=== PATIENT | male | born 1970 | race Caucasian/White ===

== ENCOUNTER 2020-09-17 07:51 | Outpatient (REF) | payer OTHER, SELFPAY ==
[2020-09-17 10:46] LABS: Alanine Aminotransferase 21 U/L (0-40); Albumin Level 4.7 g/dL (3.5-5.0); Alkaline Phosphatase 44 U/L (39-117); Anion Gap 14 (12-20); Aspartate Amino Transferase 19 U/L (5-37); Bilirubin Direct 0.2 mg/dL (0.0-0.5); Bilirubin Total 0.6 mg/dL (0.0-1.0); Blood Urea Nitrogen 23 mg/dL (9-16); Carbon Dioxide 26 mmol/L (22-29); Chloride 104 mmol/L (96-108); Cholesterol 251 mg/dL; Estimated Glomerular Filt Rate > 60; HDL Cholesterol 83 mg/dL; LDL Cholesterol Calculated 160 mg/dl; Potassium 4.5 mmol/L (3.3-5.1); Sodium 139 mmol/L (135-145); Total Protein 7.2 g/dL (6.5-8.0); Triglycerides 44 mg/dL
== END 2020-09-17 07:52 | disposition home or self-care (01) ==
LOC: HO.10HDL 07:51
PROVIDERS: Visit Provider Family Medicine
DX: I10 Essential (primary) hypertension (principal); E78.00 Pure hypercholesterolemia, unspecified
CPT/HCPCS: 36415; 80051; 80061; 80076; 82565; 84520

== ENCOUNTER → 2021-04-03 09:01 | Outpatient (BNVA) | payer OTHER, SELFPAY | PROVIDERS: PCP Family Medicine; Visit Provider Surgery ==

== ENCOUNTER 2021-07-08 06:26 | Day surgery (SDC) | payer OTHER, SELFPAY ==
[2021-05-13 15:28] VITALS: BMI 26.0
--- NOTE | 2021-05-19 10:45 | P.CONAN_ITS ---
HPI - Anesthesia Eval Consult details Narrative: 50yo M for Colonoscopy, Poss Polypectomy PMFSH Active Problems Active Problems: All Active Problems (Updated 05/13/21 @ 15:28 by Chesley Kaufman RN) Colon cancer screening (Acute) Hypertension (Acute) Past Medical History Medical History (Updated 05/13/21 @ 15:28 by Chelsey Kaufman RN) Colon cancer screening COVID-19 vaccine series completed Hypertension Surgical History Surgical History (Updated 05/13/21 @ 15:28 by Chelsey Kaufman RN) History of surgery on arm History of total right hip arthroplasty Social History Social History Are you a primary patient care representative to a significant other at home: No Do you presently have visiting nurse or other home services: No Patient Tobacco Use Status: Never used Tobacco Use of substances other than those prescribed or required for medical reasons: No Have you been hit, kicked, punched, or otherwise hurt by someone within the past year? If so, by whom?: No Are you DNR?: No Advance Directives: No (states is his but no official HCP form) Advance Directives Information Provided: Yes (informational brochure mailed) Advance Directives on File: No Recently lost weight without trying: No Eating poorly because of decreased appetite: No Nutrition Risks: No Nutritional Risk Poor oral hygiene: No Meds Allergies Allergy/AdvReac Type Severity Reaction Status Date / Time No Known Allergies Allergy Verified 05/13/21 15:26 Home Medications Medication Instructions Recorded Confirmed Last Taken Type lisinopril 5 mg tablet 5 mg PO DAILY 04/03/21 05/13/21 Unknown History Exam Exam Date and Time: May 19, 2021 1045 Height,Weight and Vital Signs: Height 5 ft 11 in Weight 84.822 kg Assessment and Plan Assessment Anesthesia Assessment: Chart Reviewed
--- NOTE | 2021-07-07 09:21 | HO.ANESPROP2 ---
Documented by User: Peyton Nelson NP 07/07/21 09:21 HPI - Anesthesia Eval Consult details Narrative: 50yo M for Colonoscopy, Poss Polypectomy [facility] Active Problems Active Problems: All Active Problems (Updated 05/13/21 @ 15:28 by Chelsey Kaufman RN) Colon cancer screening (Acute) Hypertension (Acute) Past Medical History Medical History (Updated 05/13/21 @ 15:28 by Chelsey Kaufman RN) Colon cancer screening COVID-19 vaccine series completed Hypertension Surgical History Surgical History (Updated 05/13/21 @ 15:28 by Chelsey Kaufman RN) History of surgery on arm History of total right hip arthroplasty Social History Social History Are you a primary before and after school daycare worker to a significant other at home: No Do you presently have visiting nurse or other home services: No Patient Tobacco Use Status: Never used Tobacco Use of substances other than those prescribed or required for medical reasons: No Have you been hit, kicked, punched, or otherwise hurt by someone within the past year? If so, by whom?: No Are you DNR?: No Advance Directives: No Advance Directives Information Provided: Yes Advance Directives on File: No Recently lost weight without trying: No Eating poorly because of decreased appetite: No Nutrition Risks: No Nutritional Risk Poor oral hygiene: No Meds Allergies Allergy/AdvReac Type Severity Reaction Status Date / Time cefazolin Allergy Rash Verified 07/08/21 06:40 Home Medications Medication Instructions Recorded Confirmed Last Taken Type lisinopril 5 mg tablet 5 mg PO DAILY 04/03/21 05/13/21 Unknown History Exam Exam Date and Time: July 07, 2021 0921 Height,Weight and Vital Signs: Height 5 ft 11 in Weight 84.822 kg Assessment and Plan Assessment Anesthesia Assessment: Chart Reviewed Documented by User: Wilfrido Yen 07/08/21 07:20 [facility] Past Medical History Medical History (Updated 05/13/21 @ 15:28 by Chelsey Kaufman RN) Colon cancer screening COVID-19 vaccine series completed Hypertension Functional capacity: independent ambulation Family History Family history of problems with anesthesia: No Surgical History Surgical History (Updated 05/13/21 @ 15:28 by Chelsey Kaufman RN) History of surgery on arm History of total right hip arthroplasty History of Problems with Anesthesia: No Social History Social History Are you a primary before and after school daycare worker to a significant other at home: No Do you presently have visiting nurse or other home services: No Patient Tobacco Use Status: Never used Tobacco Use of substances other than those prescribed or required for medical reasons: No Have you been hit, kicked, punched, or otherwise hurt by someone within the past year? If so, by whom?: No Are you DNR?: No Advance Directives: No Advance Directives Information Provided: Yes Advance Directives on File: No Recently lost weight without trying: No Eating poorly because of decreased appetite: No Nutrition Risks: No Nutritional Risk Poor oral hygiene: No Meds Allergies Allergy/AdvReac Type Severity Reaction Status Date / Time cefazolin Allergy Rash Verified 07/08/21 06:40 Home Medications Medication Instructions Recorded Confirmed Last Taken Type lisinopril 5 mg tablet 5 mg PO DAILY 04/03/21 05/13/21 Unknown History Exam Airway Mallampati Class: III TM Dist: >3cm Neck ROM: Full Loose/Missing/Broken Teeth: Yes (Fillings ) Heart: rrr Lungs: bl breath sounds Assessment and Plan Final Anesthetic Review Family History of Problems with Anesthesia: No History of Problems with Anesthesia: No NPO: Yes ASA Class: II Final Preanesthetic Review: Meds/Allgs Chart Reviewed and Anes Risks/Benef Reviewed Patient Risk: Intermediate Procedure Risk: Intermediate Anesthetic Plan Anesthetic Plan: MAC: Disposition: Standard PACU
[2021-07-08 06:38] VITALS: BP 124/74; PULSE 62; RESP 16; TEMP 36.3; O2SAT 98; BMI 25.7
[2021-07-08] MEDS: Lactated Ringers 1,000 ML 100 ML IVCONT (07:25)
--- NOTE | 2021-07-08 07:28 | MHC.SHP ---
Pre-Procedural Eval Section A Date of Service: 07/08/21 Section B Chief Complaint: Screening Details of Present Illness: no previous colonoscopy, no GI complaints Relevant Family History (Specify if Yes): No Relevant Social History: None Present Medications: see Short Stay Collaborative assessment Medical History: Significant History (Hypertension) Allergies: Allergies Allergy/AdvReac Type Severity Reaction Status Date / Time cefazolin Allergy Rash Verified 07/08/21 06:40 Review of Systems Sugical H&P ROS: Negative: Constitution, Cardiovascular, Respiratory, Neurological, Psychiatric, Hem-Onc, Allergic/Immunologic, Gastrointestinal, Genitourinary, Musculoskeletal, Integumentary, Endocrine and Eyes/Ears/Nose/Throat Exam Surgical H&P Exam: Normal: HEENT, Normal: Heart, Normal: Lungs, Normal: Extremities, Normal: Abdomen, Normal: Skin and Normal: Neurological Plan Diagnosis/Plan: Unchanged I have reviewed the history and physical and performed a pertinent physical examination on my patient. No changes have occurred unless specified.
--- NOTE | 2021-07-08 08:03 | W.PM.OPN ---
Operative Note Operative Note Date of Service: 07/08/21 Narrative: Preop diagnosis: Colon Cancer screening Postop diagnosis: Normal colonoscopy findings Procedure: Colonoscopy for screening Surgeon: Ryan Nye MD The patient is a 50-year-old male referred to me for screening colonoscopy. He understood the technique of the procedure. He was aware of the risks, benefits, and alternatives He was brought to the operating room placed in left lateral decubitus position under monitored anesthesia care. A surgical time-out was done. A digital rectal exam was done and there were no palpable lesions or induration in the anal canal. I then gently inserted the Olympus scope through the anal orifice and this was advanced slowly with insufflation all the way to the cecum. The cecum was intubated. The cecum was identified via visualization of the ileocecal valve as well as the appendiceal orifice. The cecal mucosa was unremarkable. The scope was gradually withdrawn with careful examination of the entire colonic mucosa being done with scope withdrawal. The patient had good bowel prep so it was unlikely that any lesion may have been missed. The rectum was reached. There were no lesions seen. The anal canal and the anal shelf are unremarkable. The scope was then withdrawn completely with desufflation. The patient tolerated procedure well. There were no complication noted. He falls at average risk for colon cancer so his next colonoscopy may be in the next 10 years.
[2021-07-08 08:11] VITALS: BP 97/52; PULSE 76; RESP 16; TEMP 36.2; O2SAT 96
[2021-07-08 08:26] VITALS: BP 108/79; PULSE 69; RESP 16; TEMP 35.9; O2SAT 96
== END 2021-07-08 09:06 | disposition home or self-care (01) ==
PROVIDERS: PCP Family Medicine; Visit Provider Surgery
PROC: 0DJD8ZZ Inspection of Lower Intestinal Tract, Via Natural or Artificial Opening Endoscopic (ICD-10-PCS; CPT 45378; principal; 2021-07-08 07:30)
DX: Z12.11 Encounter for screening for malignant neoplasm of colon (principal); I10 Essential (primary) hypertension; Z79.899 Other long term (current) drug therapy; Z88.8 Allergy status to other drugs, medicaments and biological substances
CPT/HCPCS: 45378

== ENCOUNTER 2021-10-08 09:28 | Outpatient (REF) | payer OTHER, SELFPAY ==
[2021-10-08 13:51] LABS: Anion Gap 14 (12-20); Blood Urea Nitrogen 24 mg/dL (9-16); Carbon Dioxide 27 mmol/L (22-29); Chloride 101 mmol/L (96-108); Estimated Glomerular Filt Rate > 60; Potassium 4.8 mmol/L (3.3-5.1); Sodium 137 mmol/L (135-145)
== END 2021-10-08 09:29 | disposition home or self-care (01) ==
LOC: HO.10HDL 09:28
PROVIDERS: Visit Provider Family Medicine
DX: I10 Essential (primary) hypertension (principal)
CPT/HCPCS: 36415; 80051; 82565; 84520

== ENCOUNTER 2022-10-15 12:05 | Outpatient (REF) | payer OTHER, SELFPAY ==
--- NOTE | ~2022-10-15 | XR_ITS ---
EXAMINATION: XR SHOULDER, RIGHT CLINICAL INFORMATION: Right shoulder pain. COMPARISON: None available. TECHNIQUE: Three views of the right shoulder. FINDINGS: There is no evidence of acute fracture or dislocation of the right shoulder. There is some spurring about the glenohumeral joint without significant joint space narrowing. There is degenerative change of the acromioclavicular joint with narrowing of joint space and marginal spurring. There is no widening of the coracoclavicular space. No calcific tendinitis appreciated. XR/XR shoulder RT min 2V IMPRESSION: Mild degenerative change of the glenohumeral joint and right acromioclavicular joint.
== END 2022-10-15 12:06 | disposition home or self-care (01) ==
LOC: HO.HOSX 12:05
PROVIDERS: Visit Provider Orthopaedic Surgery
DX: M67.911 Unspecified disorder of synovium and tendon, right shoulder (principal)
CPT/HCPCS: 73030

== ENCOUNTER 2022-11-16 07:18 | Outpatient (REF) | payer OTHER, SELFPAY ==
--- NOTE | ~2022-11-16 | MR_ITS ---
EXAMINATION: MR SHOULDER WITHOUT CONTRAST, RIGHT CLINICAL INFORMATION: Pain right shoulder. COMPARISON: X-ray of the right shoulder October 2022 TECHNIQUE: MRI of the shoulder without contrast was performed on a high-field scanner. FINDINGS: ROTATOR CUFF: Supraspinatus: There is a full-thickness insertional tear involving the anterior supraspinatus tendon. The tear results in tendon retraction and a tendon gap measuring 10 mm transverse and 2 cm AP. There is some additional heterogeneity of the posterior aspect of the tendon compatible with tendinosis and perhaps small areas of partial tearing but no measurable defect or tendon retraction. The muscle is normal. Infraspinatus: There is some minimal intrasubstance increased T2 signal at and just distal to the musculotendinous junction compatible with a small area of interstitial intrasubstance partial tearing but no measurable defect or tendon retraction. The muscle is normal. Teres minor: Normal. Subscapularis: Small focus of increased T2 signal along the articular surface just deep to the articular surface of the uppermost fibers of the subscapularis tendon in the midsubstance portion compatible with a small focal area of partial tearing. There is no transverse defect or tendon retraction. The muscle is normal. BICEPS: Normal. CORACOACROMIAL ARCH: The undersurface of the acromion is curved with no subacromial spur There is moderate hypertrophic osteoarthritis of acromioclavicular joint with marginal osteophytes, subchondral cystic change and reactive edema. BURSA: Small amount of increased fluid in the subacromial subdeltoid bursa. LABRUM/CAPSULE: There is a small amount of fluid tracking along the base of the superior labrum most likely reflecting a sublabral recess rather than tear. Remaining portions of the labrum are unremarkable. GLENOHUMERAL JOINT/MARROW: Normal. MR/MR shoulder RT wo con IMPRESSION: 1. Moderate size full-thickness insertional tear involving the anterior supraspinatus tendon. Additional tendinosis and perhaps small areas of partial tearing of the posterior aspect of the tendon but no measurable defect or tendon retraction. 2. Minimal abnormality of the infraspinatus compatible with small areas of interstitial intrasubstance partial tearing but no measurable defect or tendon retraction. 3. Small partial tear of the upper most fibers of the subscapularis tendon. No measurable defect. 4. 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
== END 2022-11-16 07:19 | disposition home or self-care (01) ==
LOC: HO.MRI 07:18
PROVIDERS: PCP Family Medicine; Visit Provider Orthopaedic Surgery
DX: M67.911 Unspecified disorder of synovium and tendon, right shoulder (principal)
CPT/HCPCS: 73221

== ENCOUNTER → 2022-11-30 09:36 | Outpatient (BNVA) | payer OTHER, SELFPAY | PROVIDERS: PCP Family Medicine; Visit Provider Orthopaedic Surgery ==

== ENCOUNTER 2022-12-28 09:27 | Outpatient (AMB) | payer OTHER, SELFPAY ==
--- NOTE | 2022-12-28 09:28 | A.OFFVIS_ITS ---
Intake Vital Signs 12/28/22 09:32 Height 5 ft 11 in Weight 190 lb BMI 26.5 Intake Visit Reasons: Pre-Op RT RTC repair 01/06/23NE Intake Note: Peter a 52 year old male presents today for a preoperative RT RTC repair on 01/06/23 NE. Pain management agreement reviewed and signed. Allergies cefazolin Allergy (Verified 12/28/22 09:32) Rash HPI Pre-Op RT RTC repair 01/06/23NE HPI Details Mr Clay presents to the office today for preop visit. She is scheduled for right shoulder rotator cuff repair with Dr. Goins. He continues to have ongoing pain and difficulty with in the right shoulder, which is affecting his quality of life; therefore, he has elected to move forward with surgery. 11/30/[address] Goins: Peter is a 51 year old man who presents for an MRI review of his right shoulder pain. He has a Hx of right biceps tendon repair, DOS: 01/04/19, by me. He continues to complain of pain, weakness, and limited ROM of his right shoulder, worse with overhead activity or reaching behind the back. He says his pain has improved since his fall, and he has managed to slightly increase his ROM, but he still feels limited ? 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 [employer] Review of Systems Const All systems reviewed & are unremarkable except as noted in HPI and below Physical Exam Vital Signs: BMI result Body Mass Index 26.5 Const General: cooperative and no acute distress Orientation/consciousness: patient oriented x3 HEENT Head: Yes normal to inspection, Yes normocephalic and Yes atraumatic Eyes General: appearance normal, both eyes and all related structures Neck Neck: Yes normal visual inspection and Yes no lymphadenopathy Resp Effort & Inspection: normal respiratory effort and able to speak in complete sentences Cardio Rate: regular rate Peripheral pulses: Peripheral pulses 2+ throughout GI Inspection: Yes normal to inspection Palpation (GI): Soft to palpation Skin General skin exam: no rashes or lesions noted Neuro General: patient oriented x3 Extrem Other: Right Shoulder: 4/5 strength with empty can testing otherwise full passive ROM - liftoff Psych Appearance: grossly normal Mental Status: mental status grossly normal Affect: normal affect Attitude: cooperative Results Reviewed Results Reviewed: MR shoulder RT wo con 11/16/22 IMPRESSION: 1. Moderate size full-thickness insertional tear involving the anterior supraspinatus tendon. Additional tendinosis and perhaps small areas of partial tearing of the posterior aspect of the tendon but no measurable defect or tendon retraction. ? 2. Minimal abnormality of the infraspinatus compatible with small areas of interstitial intrasubstance partial tearing but no measurable defect or tendon retraction. ? 3. Small partial tear of the upper most fibers of the subscapularis tendon. No measurable defect. ? 4. 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 Assessment & Plan Assessment & Plan (1) Impingement syndrome of right shoulder: Code(s): M75.41 - Impingement syndrome of right shoulder (2) Unspecified disorder of synovium and tendon, right shoulder: Code(s): M67.911 - Unspecified disorder of synovium and tendon, right shoulder Plan I explained the procedure in detail along with the length of recovery and rehab course. I explained the risk, benefits and alternatives. Risk including, but not limited to infection, blood clots, bleeding, ongoing pain and stiffness. I ex plained the use of the sling post op ie: 6 weeks. Discussed the importance of PT post op and performing pendulum exercises immediately after surgery. I answered all their questions and with their understanding they have consented to move forward with Rotator cuff repair Right shoulder with Dr Goins. The patient was not given a sling at todays because we did not have his size, will obtain in OR on the day of surgery. Orders: Orders PT Evaluation and Treatment Today M67.911 - Unspecified disorder of synovium and tendon, right shoulder, M75.41 - Impingement syndrome of right shoulder Patient Instructions: Scribed for Ta-Lia Villalpando PA-C, by Karri Dickerson, medical director/head team physician, on 12/28/2022 at 9:30 AM SOPHIA. Sunday Dotson PA-C, have personally reviewed and agree with the information entered by the scribe. Coding Level of Care Code Est Pt Level 3 (39467) Diagnoses Impingement syndrome of right shoulder M75.41 Unspecified disorder of synovium and tendon, right shoulder M67.911
[2022-12-28 09:32] VITALS: BMI 26.5
== END 2022-12-28 10:01 | disposition home or self-care (01) ==
PROVIDERS: PCP Family Medicine; Visit Provider Physician Assistant
DX: M75.41 Impingement syndrome of right shoulder (principal); M67.911 Unspecified disorder of synovium and tendon, right shoulder
CPT/HCPCS: 99024

== ENCOUNTER → 2022-12-28 09:27 | Outpatient (BNVA) | payer OTHER, SELFPAY | PROVIDERS: PCP Family Medicine; Visit Provider Physician Assistant ==

== ENCOUNTER 2022-12-28 10:00 | Outpatient (REF) | payer OTHER, SELFPAY ==
[2022-12-28 10:42] LABS: Anion Gap 12 (12-20); Blood Urea Nitrogen 21 mg/dL (9-16); Carbon Dioxide 29 mmol/L (22-29); Chloride 104 mmol/L (96-108); Estimated Glomerular Filt Rate > 60; Potassium 4.4 mmol/L (3.3-5.1); Sodium 141 mmol/L (135-145)
== END 2022-12-28 10:01 | disposition home or self-care (01) ==
LOC: HO.10HDL 10:00
PROVIDERS: Visit Provider Family Medicine
DX: I10 Essential (primary) hypertension (principal)
CPT/HCPCS: 36415; 80051; 82565; 84520

== ENCOUNTER 2023-01-06 09:35 | Day surgery (SDC) | payer OTHER, SELFPAY ==
[2023-01-04 10:32] VITALS: BMI 26.5
[2023-01-06] VITALS (9 sets, daily range): BP systolic 108–140; BP diastolic 65–90; PULSE 57–71; RESP 13–18; TEMP 36.2–37.1; O2SAT 92–98; BMI 26.2
--- NOTE | 2023-01-06 10:43 | MHC.SHP ---
Pre-Procedural Eval Section A Date of Service: 01/06/23 The patient is an INPATIENT: No Changes since office visit: No Cold of Flu in the past 2 weeks, No New Medical Problems, No Changes in Medication and No Patient answered all questions The History & Physical has been completed within 30 days and I have reviewed it.: Yes Section B Chief Complaint: Strain of muscle(s) and tendon(s) of the rotator Allergies: Allergies Allergy/AdvReac Type Severity Reaction Status Date / Time cefazolin Allergy Rash Verified 12/28/22 09:32 Plan I have reviewed the history and physical and performed a pertinent physical examination on my patient. No changes have occurred unless specified. Time Spent With Patient Time: Total time managing care of this patient today ____ minutes.
[2023-01-06] MEDS: Lactated Ringers 1,000 ML 100 ML IVCONT (10:44)
--- NOTE | 2023-01-06 13:01 | P.BOP_ITS ---
Brief Operative Note Date of Service: 01/06/23 Pre-op diagnosis: Right rtc tear Post-op diagnosis: same Procedure: Right rtc repair and SAD with anterior interval debridement Implants: Martinez and nephew Helacoil x 5 Surgeon: Mikel Goins MD Anesthesia: GETA and regional Was an Agricultural Extension Educator used for this Procedure?: Yes Agricultural Extension Educator: Stacie Hillman Estimated blood loss (mL): 10 IV fluids (mL): 1,000 Pathology: none sent Condition: stable Disposition: PACU
--- NOTE | 2023-01-08 16:29 | W.PM.OPN ---
Operative Note Operative Note Date of Service: 01/06/23 Narrative: Date of Service: 01/06/23 Pre-op diagnosis: Right rtc tear Post-op diagnosis: same Procedure: Right rtc repair and SAD with anterior interval debridement Implants: Martinez and nephew Helacoil x 5 Surgeon: Mikel Goins MD Anesthesia: GETA and regional Was an Supervisor Graphite used for this Procedure?: Yes Supervisor Graphite: Stacie Hillman Estimated blood loss (mL): 10 IV fluids (mL): 1,000 Pathology: none sent Condition: stable Disposition: PACU Procedure in detail: Patient was brought to the operating room and placed the the beach chair position. All bony prominences were well padded and the limb was prepped and draped in standard sterile fashion. A time out was called to identify proper site, proper procedure and proper surgeon. IV antibiotics per weight were administered. I began by making a posterolateral stab incision with a 15 blade. A blunt trochar was placed into the glenohumeral joint and I insufflated the joint with saline and a 30 degree arthroscope was placed. I established an outside- in anterior portal just distal to the biceps tendon. I then began my inspection of the glenohumeral joint. There was intact biceps and labral anchor with normal appearing glenoid and humeral head articular cartilage. Ttere was a full thickness undersurface RTC tear. The subcapularis was intact with a small partial thickness tear adjacent to mild fraying of the cieps ( ~10%). I debrided the loose tissue of the subscapularis and the biceps. I then removed the trochar and entered the subacromial space. A direct lateral portal was then established and I performed a bursectomy. The cuff was then examined. There was a full thickness crescentic tear of the supraspinatus and a portion of the infra without retraction. The tear was mobile. I placed two medial row double loaded anchors and then brought the suture tape through the medial cuff. I added two looped sutures at the anterior and posterior most aspect of the tear. I then debrided the bare area down to bleeding bone and, using a cross bridge configuration, brought three limbs to each of two lateral 5.0 anchors and the looped sutures to a far lateral anchor. This re-approximated the cuff anatomy near anatomically. I then performed a 5 mm subacromial decompression. Once I was satisfied with the repair final images were captured and I removed all instrumentation. Portals were closed with nylon. Patient was placed in an abduction sling, extubated and brought to the recovery room in stable condition. There were no known complications.
== END 2023-01-06 15:05 | disposition home or self-care (01) ==
PROVIDERS: PCP Family Medicine; Visit Provider Orthopaedic Surgery
PROC: (CPT 29827; principal; 2023-01-06 13:00)
DX: S46.011A Strain of muscle(s) and tendon(s) of the rotator cuff of right shoulder, initial encounter (principal); M75.41 Impingement syndrome of right shoulder; M67.911 Unspecified disorder of synovium and tendon, right shoulder; W19.XXXA Unspecified fall, initial encounter; Y93.9 Activity, unspecified; Y92.89 Other specified places as the place of occurrence of the external cause; Y99.9 Unspecified external cause status; I10 Essential (primary) hypertension; Z98.890 Other specified postprocedural states; Z88.1 Allergy status to other antibiotic agents; Z96.641 Presence of right artificial hip joint
CPT/HCPCS: 29827; 29826; 29822; C1713; J0171; J1100; J2250; J2405; J2795; J3010

== ENCOUNTER → 2023-01-06 09:35 | Outpatient (BNV) | payer OTHER, SELFPAY | PROVIDERS: PCP Family Medicine; Visit Provider Orthopaedic Surgery | DX: S46.011A Strain of muscle(s) and tendon(s) of the rotator cuff of right shoulder, initial encounter (principal) | CPT/HCPCS: 29826; 29827 ==

== ENCOUNTER 2023-01-11 10:45 | Outpatient (AMB) | payer OTHER, SELFPAY ==
--- NOTE | 2023-01-11 10:51 | A.OFFVIS_ITS ---
Intake Intake Visit Reasons: Post-Op RT RTC repair 01/06/23NE Intake Note: Peter is a 52 year old right hand dominant male who presents today for his first post operative appointment s/p Right RTC Repair 01/06/23 NE. Patient reports that he is doing well, he has not pain. He explains that he is frustrated that he had trouble obtaining medications, states that there was poor communications in regards to getting it filled and resulted in him being behind. Allergies cefazolin Allergy (Mild, Verified 01/06/23 10:43) Rash HPI Post-Op RT RTC repair 01/06/23NE HPI Details Peter is a 52 year old man who presents ~5 days S/P right RTC repair with SAD & anterior interval debridement. He says he is doing well and has been performing exercises at home, and his daughter has been helping him perform dressing changes. He denies any fever, chills, or worsening pain. He says he was frustrated by poor communication post-operatively regarding pain medication. He says his pharmacy never received a prescription for Oxycodone for him to take following surgery, and it took some time to get a new prescription sent to a different pharmacy [facility] Medical History Colon cancer screening COVID-19 vaccine series completed Hypertension Surgical History (Updated 01/11/23 @ 11:03 by Efren Montes) H/O cardiac radiofrequency ablation History of surgery on arm History of total left hip replacement Social History Are you a primary care associate to a significant other at home: No Do you presently have visiting nurse or other home services: No Patient Tobacco Use Status: Never used Tobacco Current occupational status: employed 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 [employer] Review of Systems Const All systems reviewed & are unremarkable except as noted in HPI and below Physical Exam Const General: no acute distress and alert Orientation/consciousness: patient oriented x3 Neuro General: patient oriented x3 Extrem Other: Right Shoulder: Portals C/D/I Sensation intact to light touch Psych Appearance: grossly normal Affect: normal affect Attitude: cooperative Assessment & Plan Assessment & Plan (1) S/P rotator cuff repair: Code(s): Z98.890 - Other specified postprocedural states Plan: This is a 52 year old man S/P right RTC repair with SAD & anterior interval debridement, DOS: 01/06/23. He is doing well and has been performing dressing changes at home. He denies any symptoms of infection. I discussed his recovery timeline with him, as well as limitations. He is to avoid any lifting or overhead activities with his RUE, and will begin PT in the next few weeks. PT has been ordered and recommend he use ice prn. He will follow up in 4 weeks. He is flying for vacation in 2 weeks, I recommend he take aspirin prior to flying to try and minimize swelling. Plan Scribed for Mikel Goins MD by Efren Montes, medical staff director, on 01/11/23 at 11:05 AM, EST. Coding Level of Care Code Global (44884) Diagnoses S/P rotator cuff repair Z98.890
== END 2023-01-11 11:31 | disposition home or self-care (01) ==
PROVIDERS: PCP Family Medicine; Visit Provider Orthopaedic Surgery
DX: Z98.890 Other specified postprocedural states (principal)
CPT/HCPCS: 99024

== ENCOUNTER → 2023-01-11 10:45 | Outpatient (BNVA) | payer OTHER, SELFPAY | PROVIDERS: PCP Family Medicine; Visit Provider Orthopaedic Surgery ==

== ENCOUNTER 2023-02-11 10:33 | Outpatient (AMB) | payer OTHER, SELFPAY ==
--- NOTE | 2023-02-11 10:35 | MHC.OFFVIS ---
Intake Intake Visit Reasons: Postop-RT RTC repair 01/06/23NE Intake Note: Peter is a 52 year old right hand dominant male who presents today for a post operative appointment s/p Right RTC Repair 01/06/23 NE. Allergies cefazolin Allergy (Mild, Verified 01/06/23 10:43) Rash HPI Postop-RT RTC repair 01/06/23NE HPI Details Peter is a 52 year old man who presents ~1 month S/P right RTC repair with SAD & anterior interval debridement. He says he is doing well and has been attending PT and performing exercises at home. He continues to wear his sling. He has some pain with any movement of his shoulder but says this is tolerable. 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 [employer] Review of Systems Const All systems reviewed & are unremarkable except as noted in HPI and below Physical Exam Const General: no acute distress, alert and awake Orientation/consciousness: patient oriented x3 HEENT Head: Yes normocephalic and Yes atraumatic Eyes EOM: EOMs intact bilaterally Resp Effort & Inspection: normal respiratory effort and able to speak in complete sentences Cardio Jugular venous distension: no JVD Skin General skin exam: turgor normal Rashes: no rashes Neuro General: patient oriented x3 Extrem Other: Right Shoulder: Portals C/D/I Passive AB to 90 degrees Passive ER to 35 degrees Psych Appearance: grossly normal Affect: normal affect Attitude: cooperative Assessment & Plan Assessment & Plan (1) S/P rotator cuff repair: Code(s): Z98.890 - Other specified postprocedural states Plan: This is a 52 year old man S/P right RTC repair with SAD & anterior interval debridement, DOS: 01/06/23. He is doing well and has been attending PT. He is to avoid any lifting or overhead activities with his RUE, and will continue with PT. I order another course of PT, and recommend he stay off the water or his boat for the next few months while he recovers. He will discontinue his sling at this time. He will follow up in 6 weeks. Plan Scribed for Mikel Goins MD by Efren Montes, medical claims specialist, on 02/11/23 at 10:40 AM, EST. Orders: Orders PT Evaluation and Treatment 02/11/23 Z98.890 - Other specified postprocedural states Coding Level of Care Code Global (19987) Diagnoses S/P rotator cuff repair Z98.890
== END 2023-02-11 10:46 | disposition home or self-care (01) ==
PROVIDERS: PCP Family Medicine; Visit Provider Orthopaedic Surgery
DX: Z98.890 Other specified postprocedural states (principal)
CPT/HCPCS: 99024

== ENCOUNTER → 2023-02-11 10:33 | Outpatient (BNVA) | payer OTHER, SELFPAY | PROVIDERS: PCP Family Medicine; Visit Provider Orthopaedic Surgery ==

== ENCOUNTER 2023-04-01 08:56 | Outpatient (AMB) | payer OTHER, SELFPAY ==
--- NOTE | 2023-04-01 09:03 | MHC.OFFVIS ---
Intake Vital Signs 04/01/23 09:05 Height 5 ft 11 in Weight 190 lb BMI 26.5 Intake Visit Reasons: PO-RT RTC repair 01/06/23NE Intake Note: Peter is a 52 year old right hand dominant male who presents today for a post operative appointment s/p Right RTC Repair 01/06/23 NE. At his last visit he was instructed to avoid and lifting and overhead activities. Patient reports that he is doing well, he notices snapping in the shoulder with overhead movements. Allergies cefazolin Allergy (Mild, Verified 01/06/23 10:43) Rash HPI PO-RT RTC repair 01/06/23NE HPI Details Peter is a 52 year old man who returns ~11 weeks S/P right RTC repair. He says he is doing well and continues to work with PT. He has noticed a snapping sensation in his shoulder with overhead activities. 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 F/u 3 o/ No heavy lfiting. Coding Level of Care Code Global (02001) Diagnoses S/P rotator cuff repair Z98.890
[2023-04-01 09:05] VITALS: BMI 26.5
== END 2023-04-01 09:18 | disposition home or self-care (01) ==
PROVIDERS: PCP Family Medicine; Visit Provider Orthopaedic Surgery
DX: Z98.890 Other specified postprocedural states (principal)
CPT/HCPCS: 99024

== ENCOUNTER → 2023-04-01 08:56 | Outpatient (BNVA) | payer OTHER, SELFPAY | PROVIDERS: PCP Family Medicine; Visit Provider Orthopaedic Surgery ==

== ENCOUNTER 2023-04-06 10:00 | Outpatient (RCR) | payer OTHER, SELFPAY ==
--- NOTE | 2023-01-28 11:36 | MHC.PT.EP ---
[facility] [place] Office [place] Office [place] Office [address] [place] [address] [phone] F: [phone] F: [phone] F: [phone] F: [phone] Physical Therapy Plan of Care Date of Evaluation: Date of Surgery: 01/06/23 Diagnosis: R RTC repair with SAD & anterior interval debridement Assessment: 52 y/o R-hand dominant male s/p R RTC repair with SAD and anterior interval debridement on 01/06/23. He is compliant with sling 'most of the time' but does not use abduction pillow. At this time, he is unable to use his R arm d/t surgical precautions and therefore limited with functional activities and hobbies (water skiing, downhill skiing). Of note he had a R biceps/ labral repair 3 years ago and a L FLORINA (anterior approach 2015). Examination shows closed and dry incisions with limited mobility anterior incision, L shoulder ROM/ strength WNL, R shoulder P/AAROM limited (flexion 90, ER 25, abd 70), R shoulder strength not tested secondary to surgical restrictions. Recommend PT 2x/week for 8 weeks then 1x/week for an additional 4 weeks to address impairments, implement HEP, and optimize functional mobility. Will utilize Frequency and Duration: The patient will be seen 2x/week for 12 weeks Short Term Goals: 6 weeks Compliant with HEP Improve R shoulder ROM flexion to 150, ER to 45 Senior Care Goals: 12 weeks I with HEP and self management of sx Pt will be able to reach overhead into shelves Pt will be able to intiiate gym regime with awareness of gradual progress of weight and precautions from surgery Pt will demonstrate R shoulder AROM WFL Treatment Plan: Modalities to reduce pain, spasms and effusion. Manual therapy to restore motion and function. Therapeutic exercise to improve strength and flexibility. Neuromuscular re-education for posture and balance. Therapeutic activities to return to functional activities of daily living. Electronically signed by: Stephie Porter PT Please sign and return to therapist. Thank you for your referral.
--- NOTE | 2023-05-25 08:20 | MHC.PT.DC ---
[facility] [place] Office [place] Office [place] Office [address] [place] [address] [phone] F: [phone] F: [phone] F: [phone] F: [phone] Physical Therapy Discharge Report Diagnosis: R RTC repair with SAD & anterior interval debridement Date of Surgery: 01/06/23 Date of Evaluation: 01/28/23 Date of Discharge: 05/25/23 Treatments to Date: 15 Cancellations to Date: 0 No Shows to Date: 0 Discharge Status: Improved Function Independent with HEP Discharge Summary: Pt made good progress with ROM and strength with education throughout not to overdo it during the RTC Repair timeline. He did not f/u with further visits following vacation. Electronically signed by: Stephie Porter PT Please sign and return to therapist. Thank you for your referral.
== END 2023-05-25 08:20 | disposition home or self-care (01) ==
LOC: HO.PT 10:00
PROVIDERS: PCP Family Medicine; Visit Provider Physician Assistant
DX: M75.41 Impingement syndrome of right shoulder (principal); M67.911 Unspecified disorder of synovium and tendon, right shoulder
CPT/HCPCS: 97110; 97112; 97140; 97161

== ENCOUNTER 2023-06-14 12:36 | Outpatient (AMB) | payer OTHER, SELFPAY ==
--- NOTE | 2023-06-14 12:37 | MHC.OFFVIS ---
Intake Vital Signs 06/14/23 12:38 Height 5 ft 11 in Weight 190 lb BMI 26.5 Intake Visit Reasons: OV-RT RTC repair 01/06/23NE-Follow up Intake Note: Peter is a 52 Year old male who presents today for a new problem visit with complaints of Right knee pain after a work injury/ skiing accident on 06/13/2023. Allergies cefazolin Allergy (Mild, Verified 06/14/23 12:44) Rash HPI OV-RT RTC repair 01/06/23NE-Follow up HPI Details Peter is a 52 year old man who presents with complaints of a right knee injury, DOI: 06/13/23. He twisted it skiing and was unable to continue skiing. 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 [employer] Review of Systems Const All systems reviewed & are unremarkable except as noted in HPI and below Physical Exam Vital Signs: BMI result Body Mass Index 26.5 Const General: no acute distress, alert and awake Orientation/consciousness: patient oriented x3 HEENT Head: Yes normocephalic and Yes atraumatic Eyes EOM: EOMs intact bilaterally Resp Effort & Inspection: normal respiratory effort and able to speak in complete sentences Cardio Jugular venous distension: no JVD Skin General skin exam: turgor normal Rashes: no rashes Neuro General: patient oriented x3 Extrem Other: 2+ nick 1+ knee effusion no ttp Psych Appearance: grossly normal Affect: normal affect Attitude: cooperative Results Reviewed Results Reviewed: nl right knee radiographs Assessment & Plan Assessment & Plan (1) Internal derangement of right knee: Code(s): M23.91 - Unspecified internal derangement of right knee Plan: ACL laxity + effusion after skiing accident with nl radiographs. MRI ordered Plan Scribed for Mikel Goins MD by Efren Montes, medical staff services coordinator, on 06/14/23 at 12:55 PM, EST. Orders: Orders MR knee RT wo con Today M23.91 - Unspecified internal derangement of right knee XR knee standing BI Today M25.569 - Pain in unspecified knee XR knee RT 2V Today M25.569 - Pain in unspecified knee Coding Level of Care Code Est Pt Level 3 (35685) Diagnoses Internal derangement of right knee M23.91
[2023-06-14 12:38] VITALS: BMI 26.5
== END 2023-06-14 13:16 | disposition home or self-care (01) ==
PROVIDERS: PCP Family Medicine; Visit Provider Orthopaedic Surgery
DX: M23.91 Unspecified internal derangement of right knee (principal); Z04.2 Encounter for examination and observation following work accident
CPT/HCPCS: 99213

== ENCOUNTER 2023-06-14 12:36 | Outpatient (REF) | payer OTHER, SELFPAY | END 2023-06-14 12:37 | disposition home or self-care (01) | LOC: HO.HOSX 12:36 | PROVIDERS: PCP Family Medicine; Visit Provider Orthopaedic Surgery | DX: M23.91 Unspecified internal derangement of right knee (principal) | CPT/HCPCS: 99212 ==

== ENCOUNTER 2023-06-16 12:57 | Outpatient (AMB) | payer OTHER, SELFPAY ==
--- NOTE | 2023-06-18 13:50 | A.OFFVIS_ITS ---
Intake Intake Visit Reasons: ACL Brace Fitting Intake Note: Peter a 52 year old male presents today for a right knee ACL brace fitting. 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 [employer] Assessment & Plan Assessment & Plan (1) Complete tear of anterior cruciate ligament of right knee: Code(s): S83.511A - Sprain of anterior cruciate ligament of right knee, initial encounter Qualifiers: Encounter type: subsequent encounter Qualified Code(s): S83.511D - Sprain of anterior cruciate ligament of right knee, subsequent encounter Plan patient was fit for an off the shelf acl brace in the office today Coding Level of Care Code Global (52705) Diagnoses Complete tear of anterior cruciate ligament of right knee, subsequent encounter S83.511D Encounter type: subsequent encounter
== END 2023-06-16 13:31 | disposition home or self-care (01) ==
PROVIDERS: PCP Family Medicine; Visit Provider Physician Assistant
DX: S83.511D Sprain of anterior cruciate ligament of right knee, subsequent encounter (principal)
CPT/HCPCS: 99212

== ENCOUNTER → 2023-06-16 12:57 | Outpatient (BNVA) | payer OTHER, SELFPAY | PROVIDERS: PCP Family Medicine; Visit Provider Physician Assistant | DX: S83.511D Sprain of anterior cruciate ligament of right knee, subsequent encounter (principal) | CPT/HCPCS: 99212 ==

== ENCOUNTER 2023-06-16 20:06 | Outpatient (REF) | payer OTHER, SELFPAY ==
--- NOTE | ~2023-06-16 | MR_ITS ---
EXAMINATION: MR KNEE WITHOUT CONTRAST, RIGHT CLINICAL INFORMATION: Right knee pain. COMPARISON: Radiographs 06/13/2023 TECHNIQUE: MRI of the knee without contrast was performed using routine sequences on a high-field scanner. FINDINGS: MENISCI: Medial Meniscus: Intact Lateral Meniscus: Intact. Tearing of the inferior popliteomeniscal fascicle. LIGAMENTS: Cruciate: Complete tear of the proximal ACL. The posterior cruciate ligament is intact. Collateral: The fibular collateral ligament is attenuated and irregular with surrounding edema likely representing a high-grade partial tear. The medial collateral ligament, biceps femoris and iliotibial band appear intact. There is a strain of the popliteus muscle. Prominent subcutaneous edema superficial to the iliotibial band. EXTENSOR MECHANISM: Intact ARTICULAR CARTILAGE/BONE: Patellofemoral Compartment: Normal Medial Compartment: Minimal articular cartilage irregularity along the lateral aspect of the weight-bearing femoral condyle. Lateral Compartment: Mild impaction fracture at the posterior aspect of the tibia. JOINT FLUID AND BURSAE: Small joint effusion and trace Ventura's cyst which may be leaking or recently ruptured, with fluid extending distally superficial to the medial gastrocnemius muscle. MR/MR knee RT wo con IMPRESSION: 1. Complete tear of the proximal ACL with a mild impaction fracture at the posterior aspect of the lateral tibia. Small joint effusion and trace Ventura's cyst. 2. High-grade partial tear of the fibular collateral ligament. Popliteus muscle strain. 3. No meniscal tear.
== END 2023-06-16 20:07 | disposition home or self-care (01) ==
LOC: HO.MRI 20:06
PROVIDERS: PCP Family Medicine; Visit Provider Orthopaedic Surgery
DX: M23.91 Unspecified internal derangement of right knee (principal)
CPT/HCPCS: 73721

== ENCOUNTER 2023-06-21 10:25 | Outpatient (AMB) | payer OTHER, SELFPAY ==
--- NOTE | 2023-06-21 14:15 | MHC.OFFVIS ---
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 He injured his right knee and is scheduled for a MRI follow-up today. He describes feeling okay with ongoing effusion. 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 Complete tear of the proximal ACL with a mild impaction fracture at the posterior aspect of the lateral tibia. Small joint effusion and trace Ventura's cyst. 2. High-grade partial tear of the fibular collateral ligament. Popliteus muscle strain. 3. No meniscal tear. Assessment & Plan Assessment & Plan (1) Complete tear of anterior cruciate ligament of right knee: Code(s): S83.511A - Sprain of anterior cruciate ligament of right knee, initial encounter Plan: This is a 52-year-old gentleman with a complete tear of his right ACL. I discussed with him my recommendation for surgery. He is active and healthy and wants to ski. I discussed with him the surgery and the details as well as the risks, benefits and alternatives. He expressed understanding and he will tentatively be scheduled for right ACL reconstruction with allograft and I will see him back in my office prior to surgery for further discussion and person. Telehealth Telehealth Location of provider rendering services: practice address Location of patient: address on file Patient Identification confirmed using: Name, : Yes Telehealth method: video Patient verbally consented to treatment: Yes Patient verbally consented to billing insurance company: Yes Patient informed of any privacy concerns related to visit: Yes Minutes spent on Phone/Video with Pt.: 15 Coding Level of Care Code Tele Est Pt Level 4 (92846) Diagnoses Complete tear of anterior cruciate ligament of right knee S83.511A
== END 2023-06-21 10:52 | disposition home or self-care (01) ==
LOC: HO.HOS 10:25
PROVIDERS: PCP Family Medicine; Visit Provider Orthopaedic Surgery
DX: S83.511A Sprain of anterior cruciate ligament of right knee, initial encounter (principal)
CPT/HCPCS: 99214

== ENCOUNTER → 2023-06-21 10:25 | Outpatient (BNVA) | payer OTHER, SELFPAY | PROVIDERS: PCP Family Medicine; Visit Provider Orthopaedic Surgery ==

== ENCOUNTER 2023-08-05 09:22 | Outpatient (AMB) | payer OTHER, SELFPAY ==
--- NOTE | 2023-08-05 09:24 | MHC.OFFVIS ---
Intake Intake Visit Reasons: Pre Op RT ACL reconstruction 08/11/23 NE Intake Note: Peter is a 52 year old male who presents today for a pre operative appointment, Right Knee ACL Repair 08/11/23.Right knee pain after a work injury/ skiing accident on 06/13/2023. Allergies cefazolin Allergy (Mild, Verified 08/05/23 09:29) Rash HPI Pre Op RT ACL reconstruction 08/11/23 NE HPI Details Peter is a 52 year old man who presents for a pre-op appointment for a right ACL reconstruction, with allograft, DOS: 08/11/23. He denies any changes in his symptoms or medial history. He has been doing well and is working on strengthening his right leg. He has no pain. 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 He is extremely active. 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 Resp Other: No audible wheezing Effort & Inspection: normal respiratory effort and able to speak in complete sentences Cardio Other: Radial pulse palpable with no rythmic abnormalities Jugular venous distension: no JVD Back/Spine/Pelvis Cervical Spine: normal cervical lordosis Skin General skin exam: turgor normal Rashes: no rashes Neuro General: patient oriented x3 Extrem Other: skin c/d/i No effusion no pain 2+nick's Psych Appearance: grossly normal Mental Status: mental status grossly normal Speech and movement: Normal speech and movement present Affect: normal affect Attitude: cooperative Results Reviewed Results Reviewed: I personally reviewed the MR images. 1. Complete tear of the proximal ACL with a mild impaction fracture at the posterior aspect of the lateral tibia. Small joint effusion and trace Ventura's cyst. 2. High-grade partial tear of the fibular collateral ligament. Popliteus muscle strain. 3. No meniscal tear. Assessment & Plan Assessment & Plan (1) Complete tear of anterior cruciate ligament of right knee: Code(s): S83.511A - Sprain of anterior cruciate ligament of right knee, initial encounter Qualifiers: Encounter type: subsequent encounter Qualified Code(s): S83.511D - Sprain of anterior cruciate ligament of right knee, subsequent encounter Plan: Right ACL tear. He is consented for an ACL reconstruction. I discussed graft choices and we elected to do a quadriceps autograft with allograft as a secondary possibility. I will also inject PRP intra-operatively. I discussed the risks benefits and alternatives including but not limited to the risk of pain, infection, stiffness, graft rupture, need for further surgery as well as potential medical complications such as blood clots, pulmonary embolism and cardiac complications. He expressed understanding. Plan Prepared for Mikel Goins MD by Efren Montes, medical language specialist, on 08/05/23 at 9:27 AM, EST. Medications: New oxycodone Partial Fill upon patient request. 5 mg PO Q4H PRN 20 caps 0RF pain 5 days S83.511A - Sprain of anterior cruciate ligament of right knee, initial encounter Coding Level of Care Code Global (83919) Diagnoses Complete tear of anterior cruciate ligament of right knee, subsequent encounter S83.511D Encounter type: subsequent encounter
== END 2023-08-05 11:38 | disposition home or self-care (01) ==
PROVIDERS: PCP Family Medicine; Visit Provider Orthopaedic Surgery
DX: S83.511A Sprain of anterior cruciate ligament of right knee, initial encounter (principal)
CPT/HCPCS: 99024

== ENCOUNTER → 2023-08-05 09:22 | Outpatient (BNVA) | payer OTHER, SELFPAY | PROVIDERS: PCP Family Medicine; Visit Provider Orthopaedic Surgery | DX: S83.511D Sprain of anterior cruciate ligament of right knee, subsequent encounter (principal) | CPT/HCPCS: 99212 ==

== ENCOUNTER 2023-08-11 11:19 | Day surgery (SDC) | payer OTHER, SELFPAY ==
--- NOTE | 2023-08-10 09:13 | HO.ANESPROP2 ---
Documented by User: Peyton Nelson NP 08/10/23 09:15 HPI - Anesthesia Eval Consult details Narrative: 52yo M for Right ACL Reconstruction with Autograft verses Allograft s/p rotator cuff repair 01/2023 with Nerve block and GA-ETT 7.5 PMFSH Active Problems Active Problems: All Active Problems (Updated 06/21/23 @ 21:10 by Sunday Villalpando PA-C) Complete tear of anterior cruciate ligament of right knee (Acute) Internal derangement of right knee (Acute) S/P rotator cuff repair (Acute) Impingement syndrome of right shoulder (Acute) Unspecified disorder of synovium and tendon, right shoulder (Acute) Colon cancer screening (Acute) Hypertension (Acute) Past Medical History Medical History COVID-19 vaccine series completed Colon cancer screening Hypertension Family History Family history of problems with anesthesia: No Surgical History Surgical History H/O cardiac radiofrequency ablation History of total left hip replacement History of surgery on arm History of Problems with Anesthesia: No Social History Social History Are you a primary director of health care marketing to a significant other at home: No Do you presently have visiting nurse or other home services: No Patient Tobacco Use Status: Never used Tobacco Current occupational status: employed 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[employer] Allergies Allergy/AdvReac Type Severity Reaction Status Date / Time cefazolin Allergy Mild Rash Verified 08/05/23 09:29 Home Medications Medication Instructions Recorded Confirmed Last Taken Type lisinopril 5 mg tablet 5 mg PO DAILY 04/03/21 01/06/23 01/05/23 History Assessment and Plan Assessment Anesthesia Assessment: Chart Reviewed Final Anesthetic Review Family History of Problems with Anesthesia: No History of Problems with Anesthesia: No Documented by User: Tamra Moreno MD 08/11/23 11:11 [facility] Past Medical History Medical History COVID-19 vaccine series completed Colon cancer screening Hypertension Surgical History Surgical History H/O cardiac radiofrequency ablation History of total left hip replacement History of surgery on arm Social History Social History Are you a primary director of health care marketing to a significant other at home: No Do you presently have visiting nurse or other home services: No Patient Tobacco Use Status: Never used Tobacco Current occupational status: employed 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[employer] 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 Allergy/AdvReac Type Severity Reaction Status Date / Time cefazolin Allergy Mild Rash Verified 08/05/23 09:29 Home Medications Medication Instructions Recorded Confirmed Last Taken Type lisinopril 5 mg tablet 5 mg PO DAILY 04/03/21 01/06/23 01/05/23 History Exam Airway Mallampati Class: II TM Dist: >3cm Neck ROM: Full Heart: rrr Lungs: cta Assessment and Plan Assessment Anesthesia Assessment: Anesthesia Plan Discussed Final Anesthetic Review NPO: Yes ASA Class: III Final Preanesthetic Review: No Changes in Pt Med Stat, Meds/Allgs Chart Reviewed, Consent Obtained/Reviewed and Anes Risks/Benef Reviewed Patient Risk: Intermediate Procedure Risk: Intermediate Anesthetic Plan Anesthetic Plan: GA and Regional Block Disposition: Standard PACU
[2023-08-11] VITALS (7 sets, daily range): BP systolic 125–139; BP diastolic 73–85; PULSE 65–92; RESP 16–18; TEMP 36.1–36.7; O2SAT 90–99; BMI 27.1
[2023-08-11] MEDS: Lactated Ringers 1,000 ML 100 ML IVCONT (11:49)
--- NOTE | 2023-08-11 13:21 | MHC.SHP ---
Pre-Procedural Eval Section A - 24 Hr Update-Section A only Date of Service: 08/11/23 The patient is an INPATIENT: No Changes since office visit: No Cold of Flu in the past 2 weeks, No New Medical Problems, No Changes in Medication and No Patient answered all questions The patient has been examined within 24 hours of the surgical procedure. The History & Physical has been completed within 30 days and I have reviewed it.: Yes Section B - Complete if H&P > 30 days Chief Complaint: Sprain of anterior cruciate ligament of right knee Allergies: Allergies Allergy/AdvReac Type Severity Reaction Status Date / Time cefazolin Allergy Mild Rash Verified 08/05/23 09:29 Plan I have reviewed the history and physical and performed a pertinent physical examination on my patient. No changes have occurred unless specified. Time Spent With Patient Time: Total time managing care of this patient today ____ minutes.
--- NOTE | 2023-08-11 17:22 | P.BOP_ITS ---
Brief Operative Note Date of Service: 08/11/23 Pre-op diagnosis: Right knee ACL tear Post-op diagnosis: same Procedure: Right ACL reconstruction wtih quad allograft and PRP Medial meniscectomy Implants: Martinez and Nephew ACL button/ 12x 25 mm tibial IF screw and 4.5 Footprint nad large Regeneten bioinductive graft Surgeon: Mikel Goins MD Anesthesia: GETA and local Was an Corrosion Technician used for this Procedure?: Yes Corrosion Technician: Stacie Hillman Estimated blood loss (mL): 25 Tourniquet time (min): 95 IV fluids (mL): 1,000 Pathology: none sent Condition: stable Disposition: PACU
--- NOTE | 2023-08-13 17:56 | W.PM.OPN ---
Operative Note Operative Note Date of Service: 08/11/23 Narrative: Date of Service: 08/11/23 Pre-op diagnosis: Right knee ACL tear Post-op diagnosis: same Procedure: Right ACL reconstruction withh quad allograft and PRP Medial meniscectomy Implants: Martinez and Nephew ACL button/ 12x 25 mm tibial IF screw and 4.5 Footprint and large Regeneten bioinductive graft Surgeon: Mikel Goins MD Anesthesia: GETA and local Was an Satellite Dish Repairer used for this Procedure?: Yes Satellite Dish Repairer: Stacie Hillman Estimated blood loss (mL): 25 Tourniquet time (min): 95 IV fluids (mL): 1,000 Pathology: none sent Condition: stable Disposition: PACU Procedure in detail: Patient was brought to the operating room placed supine on the arthroscopic table and prepped and draped in standard sterile fashion. A time-out was called to identify proper site proper procedure proper surgeon and IV antibiotics per weight were administered. Under anesthesia he had a + pivot shift. I began by exsanguinating the limb and insufflating tourniquet to 300 mm Hg. Then made a standard anterolateral stab incision. The knee was insufflated with water and 30 degree arthroscope was placed. There was grade 1 fibrillations of the patella but overall suprapatellar pouch and the gutters were clean. I descended into the medial compartment where I made my far medial portal under direct visualization. There was tear of the posterior horn with a stable root and G1/2 changes of the MFC. I used a biter and shaver to remove the undersurface flap. I then examined the notch where there was a + empty wall sign and an intact PCL. I examined the lateral compartment which was normal. I then remove the arthroscopy equipment and made 6 cm incision from the proximal pole of the patella up the midline of the thigh. Dissection down to the quad tendon and then I measured and marked a 10 mm x 2 cm bone from the proximal patella. A small oscillating saw was used to make an oblique cut with a pyrimadal shape of the bone inferiorly. These cuts were completed with a digital osteotome and the articular surface was not violated. The tendon was then cut 10 mm x 95 mm in length under direct visualization. I was very satisfied with the graft. The button wand graft sutures were then prepared on the back table. The wound was then closed with fiberwire and a large bioinductive Regeneten patch was placed over the distal tendon bone junction and sutured in place with 0 Vicryl. I then returned to the arthroscopic portion and I debrided the ACL stump and acl footprint and performed a limited notchplasty. I then, through a far AM portal and a 7mm behind the back guide, drilled a k-wire through the LFC with the knee in hyper-flexion. I measured the tunnel as a 34 and then after sizing the allograft on the back table drilled a 28 mm tunnel with a 10.5 mm reamer. The final 6 mm was drilled with a 4.5 reamer. I then pulled a suture through the femoral tunnel and turned my attention to the tibia. I did examine the femoral tunnel and was satisfied with the posterior wall and its location low and medial at the anatomic footprint. I placed my tibial drill guide in 55 deg and, through an anteromedial inc just lateral to the tibial tubercle placed a k-wire into the notch exiting just medial to the anterior horn insertion of the lateral meniscus. I then over-reamed with a 10.5 reamer. I cleaned the tunnels up with a shaver. On the back table the autograft fit through an 10.5 aperture and attached the femoral button to the looped end. I then passed the graft through the tibial tunnel and femoral tunnel and flipped the button. I cycled the knee and then placed a tibial interference screw with the knee in hyper-extension while holding the graft taught. In order to add additional security and strength I placed a Footprint anchor in the tibial side, dinking the tibial suture into it. Once I was satisfied that the interference screw and the anchor was buried I examined the ACL and the medial meniscus. The ACL was not impinging and there was a negative pivot shift. I then injected 3 ml of PRP in the femoral graft tunnel/autograft junction and then the remaining 3 in the tibial graft/tibial tunnel junction. I then removed all instrumentation and closed the incisions with nylon. Patient was then placed in sterile dressings and a hinged knee brace. David was then extubated brought recovery room stable condition. There were no known complications.
== END 2023-08-11 16:30 | disposition home or self-care (01) ==
LOC: HO.SSS 11:20
PROVIDERS: PCP Family Medicine; Visit Provider Orthopaedic Surgery
PROC: (CPT 27428; principal; 2023-08-11 13:30)
DX: S83.511A Sprain of anterior cruciate ligament of right knee, initial encounter (principal); M71.21 Synovial cyst of popliteal space [Baker], right knee; M25.461 Effusion, right knee; X58.XXXA Exposure to other specified factors, initial encounter; Y93.23 Activity, snow (alpine) (downhill) skiing, snowboarding, sledding, tobogganing and snow tubing; Y92.838 Other recreation area as the place of occurrence of the external cause; Y99.0 Civilian activity done for income or pay; I10 Essential (primary) hypertension; Z96.642 Presence of left artificial hip joint; Z98.890 Other specified postprocedural states; Z79.899 Other long term (current) drug therapy
CPT/HCPCS: 29888; 0232T; C1713; C1769; J0131; J0171; J0665; J0690; J0736; J1100; J1885; J2250; J2405; J2704; J2795; J3010

== ENCOUNTER → 2023-08-11 11:19 | Outpatient (BNV) | payer OTHER, SELFPAY | PROVIDERS: PCP Family Medicine; Visit Provider Orthopaedic Surgery | DX: S83.511A Sprain of anterior cruciate ligament of right knee, initial encounter (principal); Z04.2 Encounter for examination and observation following work accident | CPT/HCPCS: 0232T; 29888 ==

== ENCOUNTER 2023-08-19 13:39 | Outpatient (AMB) | payer OTHER, SELFPAY ==
--- NOTE | 2023-08-19 13:40 | A.OFFVIS_ITS ---
Intake Intake Visit Reasons: PO RT ACL reconstruction 08/11/23 NE Intake Note: Peter is a 52 year old male who presents today for a follow up od he right knee s/p ACL Reconstruction 08/11/23. He reports that he is doing well and has no concerns. He has been wearing his brace an utilizing cryotherapy device. Allergies cefazolin Allergy (Mild, Verified 08/05/23 09:29) Rash HPI PO RT ACL reconstruction 08/11/23 NE HPI Details Peter is a 52 year old male who presents today for a follow up od he right knee s/p ACL Reconstruction 08/11/23. He reports that he is doing well and has no concerns. He has been wearing his brace an utilizing cryotherapy device. 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
== END 2023-08-19 14:24 | disposition home or self-care (01) ==
PROVIDERS: PCP Family Medicine; Visit Provider Physician Assistant
DX: Z98.890 Other specified postprocedural states (principal); Z87.39 Personal history of other diseases of the musculoskeletal system and connective tissue
CPT/HCPCS: 99024

== ENCOUNTER → 2023-08-19 13:39 | Outpatient (BNVA) | payer OTHER, SELFPAY | PROVIDERS: PCP Family Medicine; Visit Provider Physician Assistant | DX: Z47.89 Encounter for other orthopedic aftercare (principal) | CPT/HCPCS: 99212 ==

== ENCOUNTER 2023-08-26 13:33 | Outpatient (AMB) | payer OTHER, SELFPAY ==
--- NOTE | 2023-08-26 14:12 | A.OFFVIS_ITS ---
Intake Intake Visit Reasons: PO RT ACL reconstruction 08/11/23 NE Intake Note: Peter is a 52 year old male who presents today for a follow up od he right knee s/p ACL Reconstruction 08/11/23. He reports that he is doing well and has no concerns. He has been wearing his brace an utilizing cryotherapy device. At his last visit the brace was adjusted as it was irritating the incision site, sutures removed and steri strips applied. Allergies cefazolin Allergy (Mild, Verified 08/05/23 09:29) Rash HPI PO RT ACL reconstruction 08/11/23 NE HPI Details Peter is a 52 year old male who presents today for a follow up od he right knee s/p ACL Reconstruction 08/11/23. He reports that he is doing well and has no concerns. He has been wearing his brace an utilizing cryotherapy device. At his last visit the brace was adjusted as it was irritating the incision site, sutures removed and steri strips applied. 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 [employer] Physical Exam Extrem Other: inc c/d/i moderate effusion no pain Assessment & Plan Assessment & Plan (1) S/P arthroscopic reconstruction of ACL of right knee using quadriceps tendon autograft: Code(s): Z98.890 - Other specified postprocedural states; Z87.39 - Personal history of other diseases of the musculoskeletal system and connective tissue Plan: Sutures removed follow up in 2 weeks cont PT and effusion management Coding Level of Care Code Global (50261) Diagnoses S/P arthroscopic reconstruction of ACL of right knee using quadriceps tendon autograft Z98.890; Z87.39
== END 2023-08-26 14:56 | disposition home or self-care (01) ==
PROVIDERS: PCP Family Medicine; Visit Provider Orthopaedic Surgery
DX: S83.511A Sprain of anterior cruciate ligament of right knee, initial encounter (principal); Z87.39 Personal history of other diseases of the musculoskeletal system and connective tissue
CPT/HCPCS: 99213

== ENCOUNTER → 2023-08-26 13:33 | Outpatient (BNVA) | payer OTHER, SELFPAY | PROVIDERS: PCP Family Medicine; Visit Provider Orthopaedic Surgery | DX: Z47.89 Encounter for other orthopedic aftercare (principal); Z48.02 Encounter for removal of sutures | CPT/HCPCS: 99212 ==

== ENCOUNTER 2023-09-09 13:59 | Outpatient (AMB) | payer OTHER, SELFPAY ==
--- NOTE | 2023-09-09 14:00 | A.OFFVIS_ITS ---
Intake Intake Visit Reasons: PO RT ACL reconstruction 08/11/23 NE Intake Note: kacey is a 52 year old male who presents today for a follow up od he right knee s/p ACL Reconstruction 08/11/23. He reports that he is doing well and has no concerns. He has been wearing his brace an utilizing cryotherapy device. His swelling is improving but still present . he continues to work with PT. Allergies cefazolin Allergy (Mild, Verified 08/05/23 09:29) Rash HPI PO RT ACL reconstruction 08/11/23 NE HPI Details 4 weeks post-op Working and wearing playmaker Swelling improved but not resolved PFSH Medical History COVID-19 vaccine series completed Colon cancer screening Hypertension Surgical History H/O cardiac radiofrequency ablation History of total left hip replacement History of surgery on arm Social History Are you a primary director career to a significant other at home: No Do you presently have visiting nurse or other home services: No Patient Tobacco Use Status: Never used Tobacco Current occupational status: employed 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 Almost full extension I recommend NSAIDs and unlocked brace to 90. Peter is still working and is having a hard time staying off his leg. I would like to see him in 2 weeks and we need to focus of inflammation control and ROM. I explained he needs to laternate between PT and rest. Coding Level of Care Code Global (14104) Diagnoses S/P arthroscopic reconstruction of ACL of right knee using quadriceps tendon autograft Z98.890; Z87.39
== END 2023-09-09 15:01 | disposition home or self-care (01) ==
PROVIDERS: PCP Family Medicine; Visit Provider Orthopaedic Surgery
DX: S83.511D Sprain of anterior cruciate ligament of right knee, subsequent encounter (principal); Z48.89 Encounter for other specified surgical aftercare
CPT/HCPCS: 99024

== ENCOUNTER → 2023-09-09 13:59 | Outpatient (BNVA) | payer OTHER, SELFPAY | PROVIDERS: PCP Family Medicine; Visit Provider Orthopaedic Surgery | DX: Z47.89 Encounter for other orthopedic aftercare (principal) | CPT/HCPCS: 99212 ==

== ENCOUNTER 2023-09-30 12:04 | Outpatient (AMB) | payer OTHER, SELFPAY ==
--- NOTE | 2023-09-30 12:09 | A.OFFVIS_ITS ---
Vital Signs 09/30/23 12:16 Height 5 ft 11 in Intake Visit Reasons: PO RT ACL reconstruction 08/11/23 NE Intake Note: Peter is a 52 year old male who presents today for a post operative appointment s/p s/p ACL Reconstruction 08/11/23. At his last visit the brace was locked at 90 degrees of flexion. Patient reports that he is doing well, he has been wearing an CHEY hinged knee brace at times as the ACL brace has become very uncomfortable. The ACL brace slides down on the knee making the joints of the brace misaligned and therefore putting increased pressure on the knee Allergies cefazolin Allergy (Mild, Verified 09/30/23 12:10) Rash HPI HPI PO RT ACL reconstruction 08/11/23 NE: Details: Peter is a 52 year old male who presents today for a post operative appointment s/p s/p ACL Reconstruction 08/11/23. At his last visit the brace was locked at 90 degrees of flexion. Patient reports that he is doing well, he has been wearing an CHEY hinged knee brace at times as the ACL brace has become very uncomfortable. 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 Peter may discontinue the long hinged knee brace and transition to a shorter brace that is more amenable to normal gait mechanics. I ordered a functional ACL brace for him and he should continue physical therapy. A repeat of therapy prescription was written. At 3 months postop I will see him back in my office. Orders: Orders PT Evaluation and Treatment Today Z87.39 - Personal history of other diseases of the musculoskeletal system and connective tissue, Z98.890 - Other specified postprocedural states Coding Level of Care Code Global (48727) Diagnoses S/P arthroscopic reconstruction of ACL of right knee using quadriceps tendon autograft Z98.890; Z87.39
== END 2023-09-30 12:37 | disposition home or self-care (01) ==
PROVIDERS: PCP Family Medicine; Visit Provider Orthopaedic Surgery
DX: S83.511D Sprain of anterior cruciate ligament of right knee, subsequent encounter (principal); Z48.89 Encounter for other specified surgical aftercare
CPT/HCPCS: 99024

== ENCOUNTER → 2023-09-30 12:04 | Outpatient (BNVA) | payer OTHER, SELFPAY | PROVIDERS: PCP Family Medicine; Visit Provider Orthopaedic Surgery | DX: Z47.89 Encounter for other orthopedic aftercare (principal) | CPT/HCPCS: 99212 ==

== ENCOUNTER 2023-11-11 11:26 | Outpatient (AMB) | payer OTHER, SELFPAY ==
--- NOTE | 2023-11-11 11:29 | MHC.OFFVIS ---
Intake Visit Reasons: PO RT ACL reconstruction 08/11/23 NE Intake Note: Peter is a 52 year old male who presents today for a post operative appointment s/p s/p ACL Reconstruction 08/11/23. He reports that he is doing well, has been using the eliptical and doing more intensive Physical therapy. Some soreness is felt at the bas of the patella. Allergies cefazolin Allergy (Mild, Verified 09/30/23 12:10) Rash HPI HPI PO RT ACL reconstruction 08/11/23 NE: Details: 3 1/2 months s/p right ACL. He is, overall, doing very well He is working with PT and has no pain. 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 Physical Exam Extrem Other: 3-130 well ehaled inc styable nick/ant drawer No effusion Assessment & Plan Assessment & Plan (1) S/P arthroscopic reconstruction of ACL of right knee using quadriceps tendon autograft: Code(s): Z98.890 - Other specified postprocedural states; Z87.39 - Personal history of other diseases of the musculoskeletal system and connective tissue Category: Surgical Plan: Peter is doing well I reviewed my recommendations for his rehab. No twisting, jumping. Strengthening with home exercise program. F/u 3 mo. Coding Level of Care Code Global (41596) Diagnoses S/P arthroscopic reconstruction of ACL of right knee using quadriceps tendon autograft Z98.890; Z87.39
== END 2023-11-11 11:50 | disposition home or self-care (01) ==
PROVIDERS: PCP Family Medicine; Visit Provider Orthopaedic Surgery
DX: S83.511D Sprain of anterior cruciate ligament of right knee, subsequent encounter (principal); Z87.39 Personal history of other diseases of the musculoskeletal system and connective tissue
CPT/HCPCS: 99212

== ENCOUNTER → 2023-11-11 11:26 | Outpatient (BNVA) | payer OTHER, SELFPAY | PROVIDERS: PCP Family Medicine; Visit Provider Orthopaedic Surgery | DX: Z47.89 Encounter for other orthopedic aftercare (principal); Z98.890 Other specified postprocedural states; Z87.39 Personal history of other diseases of the musculoskeletal system and connective tissue | CPT/HCPCS: 99212 ==

== ENCOUNTER 2023-11-15 13:00 | Outpatient (RCR) | payer OTHER, SELFPAY ==
--- NOTE | 2023-08-20 15:10 | MHC.PT.EP ---
[facility] [place] Office [place] Office [place] Office [address] [place] [address] [phone] F: [phone] F: [phone] F: [phone] F: [phone] Physical Therapy Plan of Care Date of Evaluation: 08/20/23 Date of Surgery: 08/11/23 Diagnosis: S/P Rt QUADRICEP TENDON AUTOGRAFT ACL RECONSTRUCTION, Rt MEDIAL MENISCECTOMY Assessment: 52 YO MALE REF TO PT S/P Rt QUADRICEP TENDON AUTOGRAFT ACL RECONSTRUCTION AND Rt MEDIAL MENISCECTOMY ON 08/11/[address] SIGALA. 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 HE HAS POST-OP FINDINGS INCLUDING LIMITED Rt LE ROM, Rt LE STRENGTH DEFICITS, AND HEALING INCISIONS Rt ANT KNEE COMPLEX. FUNCTIONALLY, THE Pt IS LIMITED W ALL ADLs-> CURRENTLY AMB W INESSA CRUTCHES AND KNEE BRACE W ALTERED GAIT, CAUTIOUS W STAIR NAVIGATION. HE IS A MOTIVATED, APPROPRIATE PT CANDIDATE TO GUIDE HIM IN HIS POST-OP COURSE ACL REPAIR. Frequency and Duration: The patient will be seen 2 x WK x 12 WKS Short Term Goals: *RE-ED RE ACL RECONSTRUCTION POST-OP PROTOCOL *INITIATE Rt LE HEP PER PROTOCOL *EFFICIENT Rt QUAD MM ACTIV *FULL TERMINAL Rt KNEE EXTENSION *PAINFREE GAIT MECH WBAT Rt LE , WITHOUT VISIBLE GAIT DEVIATIONS Furnace Packer Goals: *FULL,PAINFREE Rt KNEE ROM, SYMMETRICAL TO Lt LE *MD CLEARANCE FOR RETURN TO REG ADLs *HAMSTRING AND QUAD/ Rt LE STRENGTH 90% OF LEFT LE *INDEP HEP Treatment Plan: Modalities to reduce pain, spasms and effusion. Manual therapy to restore motion and function. Therapeutic exercise to improve strength and flexibility. Neuromuscular re-education for posture and balance. Therapeutic activities to return to functional activities of daily living. Electronically signed by: HOLLY NIETOPT Please sign and return to therapist. Thank you for your referral.
--- NOTE | 2023-11-15 15:08 | MHC.PT.DC ---
[facility] [place] Office [place] Office [address] [place] [address] [facility] [phone] F: [phone] F: [phone] F: [phone] F: [phone] Physical Therapy Discharge Report Diagnosis: S/P Rt QUADRICEP TENDON AUTOGRAFT ACL RECONSTRUCTION, Rt MEDIAL MENISCECTOMY Date of Surgery: 08/11/23 Date of Evaluation: 08/20/23 Date of Discharge: 11/15/23 Treatments to Date: 23 Cancellations to Date: 0 No Shows to Date: 0 Discharge Status: Achieved Goals Improved Function Independent with HEP Discharge Summary: DENILSON REMAINS VERY MOTIVATED AND HAS PROGRESSED VERY WELL IN PT S/P Rt ACL REPAIR W AUTOGRAFT QUAD TENDON GRAFT- HE HAS DECENT SYMMETRICAL GIRTH, SLS / STABILITY, AND CONT TO PROGRESS W STRENGTHENING IN HIS LEs. HE HAS MET THE MAJORITY OF HIS PT GOALS, AND AT THIS TIME, WE HAVE RE-EMPHASIZED THE IMPORTANCE OF TERMINAL KNEE EXT. Pt PREFERS TO DISCHARGED FROM PT AND PLANS TO PROGRESS TO SUPERVISED GYM WORKOUTS. Electronically signed by: HOLLY NIETO,PT Please sign and return to therapist. Thank you for your referral.
== END 2023-11-15 15:09 | disposition home or self-care (01) ==
LOC: HO.PT 13:00
PROVIDERS: PCP Family Medicine; Visit Provider Orthopaedic Surgery
DX: S83.511D Sprain of anterior cruciate ligament of right knee, subsequent encounter (principal); M23.91 Unspecified internal derangement of right knee
CPT/HCPCS: 97014; 97110; 97112; 97116; 97140; 97162; 97530; 97535

== ENCOUNTER 2024-01-21 07:39 | Outpatient (REF) | payer OTHER, SELFPAY ==
[2024-01-21 10:50] LABS: Alanine Aminotransferase 46 U/L (0-40); Anion Gap 11 (12-20); Aspartate Amino Transferase 28 U/L (5-37); Blood Urea Nitrogen 22 mg/dL (9-16); Carbon Dioxide 27 mmol/L (22-29); Chloride 107 mmol/L (96-108); Cholesterol 254 mg/dL (<200); Estimated Glomerular Filt Rate > 60; HDL Cholesterol 90 mg/dL (>40); LDL Cholesterol Calculated 157 mg/dL (<100); Potassium 4.3 mmol/L (3.3-5.1); Sodium 141 mmol/L (135-145); Triglycerides 38 mg/dL (<150)
== END 2024-01-21 07:40 | disposition home or self-care (01) ==
LOC: HO.10HDL 07:39
PROVIDERS: Visit Provider Family Medicine
DX: I10 Essential (primary) hypertension (principal); E78.00 Pure hypercholesterolemia, unspecified
CPT/HCPCS: 36415; 80051; 80061; 82565; 84450; 84460; 84520

== ENCOUNTER 2024-02-10 09:43 | Outpatient (AMB) | payer OTHER, SELFPAY ==
--- NOTE | 2024-02-10 09:45 | MHC.OFFVIS ---
Vital Signs 02/10/24 09:45 Height 5 ft 11 in Intake Visit Reasons: PO RT ACL reconstruction 08/11/23 NE Intake Note: Peter is a 53 year old male who presents today for a follow up of his right knee. S/p Left Knee ACL Reconstruction 08/11/23. He is on modified duty with no twisting or jumping.Patient reports that he is dong well with no concerns Allergies cefazolin Allergy (Mild, Verified 02/10/24 09:47) Rash HPI HPI PO RT ACL reconstruction 08/11/23 NE: Details: Peter is a 53 year old male who presents today for a follow up of his right knee. S/p Left Knee ACL Reconstruction 08/11/23. 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 Well-healed incision. Full range of motion. No effusion. Assessment & Plan Assessment & Plan (1) S/P arthroscopic reconstruction of ACL of right knee using quadriceps tendon autograft: Code(s): Z98.890 - Other specified postprocedural states; Z87.39 - Personal history of other diseases of the musculoskeletal system and connective tissue Category: Surgical Plan: Six months postop doing great. Reviewed precautions. He is pretty aggressive with activity. I recommend he wear his knee brace if he chooses to ski this winter. Coding Level of Care Code Est Pt Level 3 (52780) Diagnoses S/P arthroscopic reconstruction of ACL of right knee using quadriceps tendon autograft Z98.890; Z87.39
== END 2024-02-10 10:10 | disposition home or self-care (01) ==
PROVIDERS: PCP Family Medicine; Visit Provider Orthopaedic Surgery
DX: Z47.89 Encounter for other orthopedic aftercare (principal); S83.511D Sprain of anterior cruciate ligament of right knee, subsequent encounter; Z04.2 Encounter for examination and observation following work accident
CPT/HCPCS: 99213

== ENCOUNTER → 2024-02-10 09:43 | Outpatient (BNVA) | payer OTHER, SELFPAY | PROVIDERS: PCP Family Medicine; Visit Provider Orthopaedic Surgery | DX: Z47.89 Encounter for other orthopedic aftercare (principal) | CPT/HCPCS: 99212 ==

== ENCOUNTER 2024-05-18 09:31 | Outpatient (AMB) | payer OTHER, SELFPAY ==
--- NOTE | 2024-05-18 09:36 | MHC.OFFVIS ---
Vital Signs 05/18/24 09:36 Height 5 ft 11 in Intake Visit Reasons: OV-RT ACL reconstruction 08/11/23 NE-follow up Intake Note: Peter is a 53 year old male who presents today for a follow up of his right knee. S/p Left Knee ACL Reconstruction 08/11/23. At his last visit he was cleared to return to activities, advised to wear a brace with skiing. Allergies cefazolin Allergy (Mild, Verified 02/10/24 09:47) Rash HPI HPI OV-RT ACL reconstruction 08/11/23 NE-follow up: Details: Peter is a 53 year old male who presents today for a follow up of his right knee. S/p Left Knee ACL Reconstruction 08/11/23. At his last visit he was cleared to return to activities, advised to wear a brace with skiing. 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 Continues to wear his brace while skiing. I recommend he do this until 12 months postop. Follow up as needed. Coding Level of Care Code Est Pt Level 3 (95365) Diagnoses S/P arthroscopic reconstruction of ACL of right knee using quadriceps tendon autograft Z98.890; Z87.39
== END 2024-05-18 10:40 | disposition home or self-care (01) ==
PROVIDERS: PCP Family Medicine; Visit Provider Orthopaedic Surgery
DX: S83.511D Sprain of anterior cruciate ligament of right knee, subsequent encounter (principal); Z87.39 Personal history of other diseases of the musculoskeletal system and connective tissue
CPT/HCPCS: 99212

== ENCOUNTER → 2024-05-18 09:31 | Outpatient (BNVA) | payer OTHER, SELFPAY | PROVIDERS: PCP Family Medicine; Visit Provider Orthopaedic Surgery | DX: Z98.890 Other specified postprocedural states (principal); Z87.39 Personal history of other diseases of the musculoskeletal system and connective tissue | CPT/HCPCS: 99212 ==

== ENCOUNTER 2024-08-03 08:13 | Outpatient (REF) | payer OTHER, SELFPAY ==
[2024-08-04 18:53] LABS: Homocysteine 11.3 umol/L (<11.4)
== END 2024-08-03 08:14 | disposition home or self-care (01) ==
LOC: HO.LAB 08:13
PROVIDERS: Visit Provider Family Medicine
DX: Z82.49 Family history of ischemic heart disease and other diseases of the circulatory system (principal); E72.11 Homocystinuria
CPT/HCPCS: 36415; 83090

== ENCOUNTER → 2024-08-04 07:57 | Outpatient (REF) | payer OTHER, SELFPAY ==
--- NOTE | 2024-08-04 08:00 | CA_ITS ---
Transthoracic Echocardiogram Patient (Last, First, Middle): Peter Clay, Gender: Male Date of : 1970 Age: 53 Procedure Date: 08/04/2024 Procedure Type: Transthoracic Echocardiogram Location: OP Height: 180.34 cm Weight: 88.45 kg BSA: 2.09 m2 Heart Rate: bpm BP: 130 / 82 mmHg Synchronizer: Referring MD: Sagar Francisco MD Symptoms: I05.1 RHEUMATIC MITRAL INSUFFICIENCY Study Quality: Good ECG Rhythm: Sinus Conclusions: - Normal left ventricular size and systolic function. There is mildly increased left ventricular wall thickness. The visually estimated ejection fraction is between 55-60%. - E/E prime ratio is between 8 and 15 consistent with indeterminate filling pressures. - Normal right ventricular cavity size and systolic function. - The left atrium is moderately dilated. - There is mild to moderate mitral valve regurgitation. Findings Left Ventricle Normal left ventricular size and systolic function. There is mildly increased left ventricular wall thickness. The visually estimated ejection fraction is between 55-60%. Abnormal diastolic function is noted. Spectral Doppler is indicative of a pseudonormal filling pattern. E/E prime ratio is between 8 and 15 consistent with indeterminate filling pressures. Right Ventricle Normal right ventricular cavity size and systolic function. Atria The left atrium is moderately dilated. The right atrium is normal in size. Aortic Valve Normal aortic valve structure and function. There is no aortic valve stenosis. There is no aortic valve regurgitation. Mitral Valve The mitral valve appears normal. There is mild to moderate mitral valve regurgitation. There is no mitral valve stenosis. Pulmonic Valve Normal pulmonic valve structure and function. There is trace pulmonic valve regurgitation. Tricuspid Valve Normal tricuspid valve structure. There is trace tricuspid valve regurgitation. Normal right atrial pressure. There is no evidence of pulmonary hypertension. Great Vessels All visible segments of the aorta are normal in size. The visualized portions of the pulmonary artery and branches are normal. Venous The inferior vena cava is normal in size and collapses greater than 50% with inspiration. Pericardium/Pleural There is no evidence of pericardial effusion. Measurements 2D Linear Measurements IVSd: 1.21 0.6-0.9/0.6-1.0 cm LVIDd: 4.77 3.9-5.3/4.2-5.9 cm LVIDd Index: 2.28 2.4-3.2/2.2-3.1 cm/m2 LVIDs: 3.19 2.0-3.6 cm LVPWd: 1.23 0.7-1.1 cm Ao Root: 3.30 2.1-3.5 cm LA Diam: 4.10 2.7-3.8/3.0-4.0 cm LAIDs Index: 1.96 1.5-2.3 cm/m2 LV Mass: 276.92 67-162/88-224 g LV Mass Index: 132.50 43-95/49-115 g/m2 LVOT Diam: 2.20 3.0+(-)1.3 cm Mitral Valve MV Pk E: 0.75 MV PK A: 0.66 MV Decel Time: 153.00 E/A: 1.10 E'Lateral: 7.40 E'Medial: 5.77 E/E' Med: 13.10 E/E' Lat: 10.20 PHT: 45.00 MVA PHT: 4.89 Decel [place]: 4.92 MR Vol - PW Dopp: 20.40 MR VTI: 1.70 MR ERO: 12.00 MR Alias Jamie: 0.39 MR RAD: 0.50 Aortic Valve AoV Pk Jamie: 1.62 AoV Mn Jamie: 1.08 AoV VTI: 0.36 AoV Pk Grad: 10.00 Aov Mn Grad: 6.00 DAVID Cont.VTI: 2.33 LVOT LVOT Pk Jamie: 1.02 LVOT Mn Jamie: 0.73 LVOT VTI: 0.22 LVOT Pk Grad: 4.00 LVOT Mn Grad: 2.00 LVOT Diam: 2.20 LVOT Area: 3.80 Diastolic Function MV Pk E: 0.75 MV Pk A: 0.66 E/A: 1.10 E'Medial: 5.77 E/E' Med: 13.10 E' Laterial: 7.40 E/E' Lat: 10.20 Right Ventricle TAPSE (mm): 25.00 TVS' Jamie: 11.00 Tricuspid Valve TR Pk Jamie: 2.06 TR Pk Grad: 17.00 RA Press: 3.00 RVSP: 20.00 Great Vessels Aorta Ao Root-2D: 3.30 2.0-3.7 cm Ao Asc: 3.40 2.1-3.4 cm Pulmonary Valve PV Pk Jamie: 1.02 Peak PV Grad: 4.00 Updated in Other Vendor System with Status of Final Jamel Cruz MD electronically signed on 08/06/2024 1:35:26 PM with status of Final
== END ==
LOC: HO.CARD 07:57
PROVIDERS: PCP Family Medicine; Visit Provider Family Medicine
DX: I05.1 Rheumatic mitral insufficiency (principal)
CPT/HCPCS: 93306

== ENCOUNTER → 2024-08-04 08:00 | Outpatient (BNV) | payer OTHER, SELFPAY | PROVIDERS: PCP Family Medicine; Visit Provider Internal Medicine Cardiovascular Disease | DX: I05.1 Rheumatic mitral insufficiency (principal) | CPT/HCPCS: 93306 ==

== ENCOUNTER 2025-01-15 14:40 | Outpatient (AMB) | payer OTHER, SELFPAY ==
--- NOTE | 2025-01-15 14:45 | MHC.OFFVIS ---
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 Patient had echocardiogram July which showed normal LV ejection fraction but showed moderate left atrial enlargement most likely related to hypertension. 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 Since then he said he does not have the regular strong palpitations used to have in the past. However he intermittently still gets fluttering in his chest which last for few sec. He has never been able to get EKGs during that time. He denies any exertional chest pain or shortness of breath. A strong family history of atrial fibrillation in his father in his other family members. This also strong family history of premature atherosclerosis in his father as well as his uncle and cousin who at age 53 and were avid at [employer]. He is concerned about his own cardiovascular risk. He has high cholesterol but in the past has not been able to tolerate statins as given him muscle ache and fatigue. He denies any lightheadedness, syncope denies any heart failure symptoms. Says blood pressures been generally well controlled. 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 [employer] Review of Systems Const Denies chills, Denies fatigue, Denies fever(s), Denies frequent falls, Denies weakness, Denies weight gain and Denies weight loss ENT Denies dizziness Card Denies chest pain, Denies leg edema, Denies lightheadedness, Denies palpitations, Denies dyspnea, Denies dyspnea on exertion and Denies orthopnea Resp Denies cough, Denies dyspnea and Denies dyspnea on exertion GI Denies bloating and Denies change in bowel habits Musc Denies muscle weakness, Denies numbness and Denies tingling Neuro Denies dizziness, Denies frequent falls, Denies numbness, Denies tingling and Denies weakness Endo Denies fatigue and Denies palpitations Physical Exam Vital Signs: Last Vital Signs Pulse 64 01/15/25 14:47 BP 116/68 01/15/25 14:47 BMI result Body Mass Index 26.7 Const General: cooperative, comfortable, no acute distress, well developed, alert, awake and Physically active Nutritional Appearance: average body habitus and well nourished Orientation/consciousness: patient oriented x3 Limitations: no limitations HEENT Head: Yes normocephalic and Yes atraumatic Neck Neck: Yes trachea midline, Yes supple and Yes no JVD Resp Effort & Inspection: normal respiratory effort Auscultation: clear to auscultation bilaterally Cardio Jugular venous distension: no JVD Palpation: normal PMI Rate: regular rate Rhythm: regular rhythm Heart sounds: S1 normal heart sound present, S2 normal heart sound present, no click, no gallops, no murmurs and no rubs GI Auscultation: normal bowel sounds Skin General skin exam: no rashes or lesions noted Neuro General: patient oriented x3 and no focal motor deficits Extrem General: Yes no clubbing, cyanosis or edema Psych Appearance: grossly normal Office Procedures EKG Details: EKGs shows normal sinus rhythm with nonspecific STT wave changes [id number], Complete Assessment & Plan Assessment & Plan (1) Hypertension: Code(s): I10 - Essential (primary) hypertension Category: Medical Plan: Patient with longstanding history of hypertension prior history of SVT with WPW ablation done 25 years ago. His echocardiogram shows moderate left atrial enlargement. He has significant risk factors for coronary artery disease given strong family history of premature atherosclerosis as well as his own history of hypertension hyperlipidemia with intolerance to statin therapy. We discussed about further risk stratification. Given his strong risk factors but no symptoms I think we should pursue with a coronary calcium score to assess for presence of coronary atherosclerosis and extent of coronary calcium score that would determine prognosis. This was discussed with him. He is agreeable to pursue that. Further treatment based on the findings. If he has extensive coronary calcium will need further provocative testing to assess for silent myocardial ischemia. This was discussed with him and he is agreeable and understands. Also given his left atrial enlargement is history of hypertension in his symptoms of palpitation will be concern for presence of atrial fibrillation. I have advised him to invest in EKGs sensors that can help with diagnose of atrial fibrillation as this would private branch exchange service adviser especially in terms of stroke prevention. This was discussed with him. He understands agrees. Also advise baseline lipid panel along with CRP to assess cardiovascular risk and further treat based on the findings along with coronary calcium score. Will follow up in the clinic in 1 year, sooner p.r.n.. Thank you for allowing me to partake in his care Orders: Orders CT Coronary Calcium Score 1 Week E78.5 - Hyperlipidemia, unspecified, I10 - Essential (primary) hypertension Lipid Panel 01/15/25 I10 - Essential (primary) hypertension, I25.10 - Atherosclerotic heart disease of [place] coronary artery without angina pectoris Lipoprotein A 01/15/25 I10 - Essential (primary) hypertension, I25.10 - Atherosclerotic heart disease of [place] coronary artery without angina pectoris CRP High Sensitivity 01/15/25 E78.5 - Hyperlipidemia, unspecified, I10 - Essential (primary) hypertension Apolipoprotein B 01/15/25 I10 - Essential (primary) hypertension, I25.10 - Atherosclerotic heart disease of [place] coronary artery without angina pectoris Coding Level of Care Code New Pt Level 4 (89731) Complex EM visit Add On G2211 Diagnoses Hypertension I10 CPT Codes EKG - CPT: 22347-[id number], Complete ([id number])
[2025-01-15 14:47] VITALS: BP 116/68; PULSE 64; BMI 26.7
--- OUTSIDE RECORDS SUMMARY | 2025-01-15 15:06 | XMS_ITS | Clinical Summary ---
Author Organization [facility] Address [address] [place] [id number] Phone Care Team Providers Care Chemical Production Engineer Name Role Phone Sagar Francisco MD Primary Care Provider [phone] Allergies No known active allergies Medications lisinopril (PRINIVIL,ZESTRI L) 5 MG tablet Take 5 mg by mouth daily. Active Social History Tobacco Use Types Packs/Day Years Used Date Smoking Tobacco: Never Smokeless Tobacco: Never Alcohol Use Standard Drinks/Week Comments Not Currently 0 (1 standard drink = 0.6 oz pur e alcohol) Education Answer Date Recorded Are you interested in more education? Not on chicho e 10/02/2022 Are you concerned about learning? Not on file 10/02/2022 No 10/02/2022 No 10/02/2022 Digital Access Answer Date Recorded No 10/31/2022 No 10/31/2022 No 10/31/2022 Reliable internet access at home? Not on file 10/31/2022 Device with a working camera? Not on file Sex and Gender Information Value Date Recorded Sex Assigned at Not on file Legal Sex Male 12:23 PM EDT Gender Identity Not on file Sexual Orientation Not on file Last Filed Vital Signs Vital Sign Reading Time Taken Comments Blood Pressure 143/88 12/16/2019 12:39 PM EDT Pulse 69 12/16/2019 12:39 PM EDT Temperature 36.4 C (97.6 F) 12/16/2019 12:39 PM EDT Respiratory Rate - - Oxygen Saturation 96% 12/16/2019 12:39 PM EDT Inhaled Oxygen Concentration - - Weight 83.9 kg (185 lb) 12/16/2019 12:39 PM EDT Height 180.3 cm (5' 11 ) 12/16/2019 12:39 PM EDT Body Mass Index 25.8 12/16/2019 12:39 PM EDT Plan of Treatment Health Maintenance Due Date Last Done Comments Adult Td,Tdap Booster 1970 CREATININE LEVEL 1970 LIPID PANEL 1970 POTASSIUM LEVEL 1970 DEPRESSION SCREENING 1982 HEPATITIS C SCREENING 1988 HIV ONE-TIME SCREENING (18-6 5 YEARS) 1988 COLOGUARD 12/05/2015 COLONOSCOPY 12/05/2015 COLORECTAL CANCER SCREENING 12/05/2015 FIT TEST 12/05/2015 FOBT 12/05/2015 SIGMOIDOSCOPY 12/05/2015 VIRTUAL COLONOSCOPY 12/05/2015 PNEUMOCOCCAL VACCINES (50+ years) (1 of 1 - PCV) 2020 ZOSTER VACCINES (1 of 2) 2020 COVID-19 VACCINE (3 - 2023-2 5 season) 2024 10/30/2020, 10/01/2020 SMOKING STATUS SCREENING (On ce After 26 Yrs) Completed 12/16/2019 HEPATITIS A VACCINES Aged Out No long er eligible based on patient's age to complete this topic HIB VACCINES Aged Out No longer eligi ble based on patient's age to complete this topic MENINGOCOCCAL VACCINES (ACWY) Aged Out No longer eligible based on patient's age to complete this topic MENINGOCOCCAL VACCINES (B) Aged Out N o longer eligible based on patient's age to complete this topic Medical Devices [place] [id number] [facility] HMO [facility] HMO [facility] Care Teams Chemical Production Engineer Relationship Specialty Start Date End Date Sagar Francisco MD [address] [place] [address] [address] [place] [address] PCP - General Internal Medicine 12/16/19 Additional Source Comments The information contained in this document represents components of the legal health record. It is not the complete legal health record.[facility]
== END 2025-01-15 15:13 | disposition home or self-care (01) ==
LOC: HO.HCS 14:41
PROVIDERS: PCP Family Medicine; Visit Provider Internal Medicine Cardiovascular Disease
DX: I10 Essential (primary) hypertension (principal)
CPT/HCPCS: 93010; 99204; G2211

== ENCOUNTER → 2025-01-15 14:40 | Outpatient (BNVA) | payer OTHER, SELFPAY | PROVIDERS: PCP Family Medicine; Visit Provider Internal Medicine Cardiovascular Disease | DX: I10 Essential (primary) hypertension (principal) | CPT/HCPCS: 93005 ==

== ENCOUNTER 2025-02-12 14:53 | Outpatient (AMB) | payer OTHER, SELFPAY ==
[2025-02-12 14:58] VITALS: BP 120/76; PULSE 72; TEMP 36.4; O2SAT 95; BMI 27.3
--- NOTE | 2025-02-12 14:58 | MHC.PC.OV ---
Vital Signs 02/12/25 14:58 Height 5 ft 11 in Weight 196 lb BMI 27.3 BP 120/76 Blood Pressure Location Rt brachial Position Sitting Pulse 72 Pulse Source Pulse Oximeter Temp 97.5 F Temp Source Temporal Artery Scan Pulse Oximetry (%) 95 Oxygen Delivery Method Room Air Intake Visit Reasons: Routine Security Systems Sales Representative Required: No Accompanied by: Self / Same As Patient Allergies cefazolin Allergy (Mild, Verified 02/12/25 14:58) Rash Esjiokv-NLA-CnK Reductase Inhibitor Adverse Reaction (Severe, Verified 02/12/25 14:58) Muscle Pain Medication List - Last Reconciled 02/19/25 by RICHARD Zheng lisinopril 5 mg PO DAILY vitamin B complex 1 tab PO DAILY Tobacco use date assessed: 02/12/25 Dental Screening Dental Screen Date: 02/12/25 Did you have a dental visit in the last 12 months?: Yes Did you have a dental problem in the last 6 months where you did not have access to dental care?: No HPI HPI Comments History of Present Illness Details The patient is a 54-year-old male with HTN, HLD and 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 He reports that the procedure was successful, with occasional sensations of irregular rhythm but no significant episodes since the intervention. He underwent a left hip replacement at [facility] due to an old sports injury. The procedure was performed using an anterior approach, and the patient reports a quick recovery, returning to work shortly after the surgery. The patient has had multiple orthopedic surgeries, including biceps and rotator cuff repair, and ACL reconstruction. These procedures were performed by Dr. Goins, and the patient remains active in sports such as water skiing and snow skiing. He is currently on lisinopril 5 mg for hypertension, with good blood pressure control. BP today was 120/76. There is a significant family history of cardiovascular disease, prompting further evaluation by cardiology. He was seen on 01/15/25. He is pending some labs and a CT calclium score. The patient has hyperlipidemia but experienced adverse effects with statin therapy, including fatigue and myalgia. He has since adopted a low-carbohydrate diet, resulting in a 20-pound weight loss over eight weeks, and continues to maintain this lifestyle. He had varicose veins in the right leg, which were treated at [facility] with a stripping procedure. The patient reports no recurrence of symptoms post-procedure. The patient also has presbyopia and uses monovision contact lenses for correction. He has considered laser surgery but opted for contacts due to current financial priorities. Patient had colonoscopy on 07/08/21. Next one due in 10 years [facility] Medical History (Updated 02/19/25 @ 06:08 by RICHARD Zheng) Colon cancer screening COVID-19 vaccine series completed Hyperlipemia Hypertension WPW syndrome Surgical History H/O cardiac radiofrequency ablation History of colonoscopy (~07/08/21) History of surgery on arm History of total left hip replacement Family History (Updated 02/12/25 @ 15:06 by Connie Rios MA) Mother No problems noted. Father No problems noted. 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 1. Little interest or pleasure in doing things: not at all 2. Feeling down, depressed, or hopeless: not at all 3. Trouble falling or staying asleep, or sleeping too much: not at all 4. Feeling tired or having little energy: not at all 5. Poor appetite or overeating: not at all 6. Feeling bad about yourself - or that you are a failure or have let yourself or your family down: not at all 7. Trouble concentrating on things, such as reading the newspaper or watching television: not at all 8. Moving or speaking so slowly that other people could have noticed. Or the opposite - being so fidgety or restless that you have been moving around a lot more than usual: not at all 9. Thoughts that you would be better off or of hurting yourself in some way: not at all Total score: 0 Source: Developed by Drs. Levy Barrios, Gaye Ordaz, Cameron Moseley and colleagues, with an educational vivienne from [employer]. Thrive Questionnaire Date Thrive assessed: 02/12/25 I am a: Patient Within the past 12 months, did the food you bought not last and you didn't have the money to get more?: Never true Within the past 12 months, did you worry whether your food would run out before you got money to buy more?: Never true Do you have trouble paying for medicines?: No Do you have trouble getting transportation to medical appointments?: No Do you have trouble paying your heating and electricity bill?: No Do you have trouble taking care of your child, family member or friend?: No Do you have trouble with day-to-day activities such as bathing, preparing meals, shopping, managing finances, etc.?: No Are you currently unemployed and looking for a job?: No Are you interested in more education?: No THRIVE Score: 0 AUDIT C Alcohol Use Questionnaire (AUDIT-C) 1. How often do you have a drink containing alcohol?: Monthly or less (Sometimes) 2. How many drinks containing alcohol do you have on a typical day when you are drinking?: 1 or 2 3. How often do you have six or more drinks on one occasion?: Less than monthly Total Score: 2 CAMMIE-7 AMB Questionnaire CAMMIE-7 Date CAMMIE - 7 assessed: 02/12/25 Feeling nervous, anxious, or on edge: 0 = Not at all Not being able to stop or control worryin = Not at all Worrying too much about different things: 0 = Not at all Trouble relaxin = Not at all Being so restless that it is hard to sit still: 0 = Not at all Becoming easily annoyed or irritable: 0 = Not at all Feeling afraid as if something awful might happen: 0 = Not at all Total CAMMIE-7 score (0-4 normal; 5-9 mild; 10-14 moderate; 15-21 severe): 0 Source: Developed by Gaye HopkinsW. Orlin, Cameron Moseley and colleagues, with an educational vivienne from [employer]. Review of Systems Const Details: CONSTITUTIONAL Negative HEAD/NECK Reports presbyopia, uses monovision contact lenses EAR/NOSE/MOUTH/THROAT Negative RESPIRATORY Negative CARDIOVASCULAR Denies chest pain, shortness of breath GASTROINTESTINAL Negative MUSCULOSKELETAL Reports no joint issues post-surgery NEUROLOGICAL Negative PSYCHIATRIC Negative Physical exam (Primary Care) Vital Signs: Last Vital Signs Temp 97.5 F 02/12/25 14:58 Pulse 72 02/12/25 14:58 BP 120/76 02/12/25 14:58 Pulse Ox 95 02/12/25 14:58 Oxygen Delivery Method Room Air 02/12/25 14:58 BMI result Body Mass Index 27.3 GENERAL Well developed, Well nourished, in no apparent distress HEENT Head-Normocephalic Eyes- PERRLA, EOMI, Conjuctiva clear, lids WNL Ears- Canals clear, TMs WNL Mouth/Throat-No lesions, no erythema, no exudate Neck- Supple, No lymphadenopathy, thyroid WNL RESPIRATORY Normal I:E, Clear to auscultation CARDIOVASCULAR Regular, rate and rhthym, No murmurs or rubs GASTROINTESTINAL Soft, nontender, normal bowel sounds, no masses NEUROLOGICAL Gait normal PSYCHIATRIC Oriented to person, place and time Mood and affect WNL Appearance WNL Speech WNL Thought processes WNL Tobacco/Smoking Status: Tobacco use Status Tobacco use date assessed 02/12/25 02/12/25 14:59 Patient Tobacco Use Status Never used Tobacco 02/12/25 14:59 e-Cigarette/Vaping Use Never Used 02/12/25 14:59 PHQ-9: PHQ-9 Score PHQ-9: Total score 0 02/18/25 16:42 Thrive Assessment: Date of Thrive Assessment Date Thrive assessed 02/12/25 02/12/25 14:59 Coding Level of Care Code New Pt New Pt Level 4 (35831) Patient Type New Diagnoses Primary hypertension I10 Hypertension type: primary hypertension Pure hypercholesterolemia E78.00 Hyperlipidemia type: pure hypercholesterolemia Time Spent (min) 35 Comment Time spent on chart review, H&P, Patient education and orders. Assessment & Plan Assessment & Plan (1) Hypertension: Comment: BP today was 120/76 Code(s): I10 - Essential (primary) hypertension Category: Medical Qualifiers: Hypertension type: primary hypertension Qualified Code(s): I10 - Essential (primary) hypertension Plan: The patient is currently on lisinopril 5 mg for hypertension, with good blood pressure control. Given the significant family history of cardiovascular disease, ongoing monitoring and management are essential. Follow-up with cardiology is advised to assess cardiovascular risk and adjust treatment as necessary. (2) Hyperlipemia: Comment: Patient is unable to tolerate Statins Code(s): E78.5 - Hyperlipidemia, unspecified Category: Medical Qualifiers: Hyperlipidemia type: pure hypercholesterolemia Qualified Code(s): E78.00 - Pure hypercholesterolemia, unspecified Plan: The patient has hyperlipidemia but experienced adverse effects with statin therapy, including fatigue and myalgia. He has adopted a low-carbohydrate diet, resulting in a 20-pound weight loss over eight weeks. Continued dietary management and regular lipid profile monitoring are recommended to manage cholesterol levels effectively. Patient to follow up with Cardiology Plan During the visit, we discussed the patient's cardiovascular health, including the need for follow-up with cardiology regarding the calcium score. We reviewed his history of Wsrtb-Kxvwizhou-Nmxnk syndrome and the successful ablation procedure. The importance of continued monitoring for hypertension and hyperlipidemia was emphasized, given his family history. We also discussed his intolerance to statins and the benefits of his current low-carbohydrate diet. The patient was advised to continue with regular physical activity and dietary management. We also reviewed his orthopedic history, including hip replacement and ACL reconstruction, and the successful treatment of varicose veins. Follow-up appointments and additional blood work were planned to monitor his health status. Orders: Orders Comprehensive Met. Panel Today I10 - Essential (primary) hypertension, Z00.00 - Encounter for general adult medical examination without abnormal findings TSH reflex Free T4 Today I10 - Essential (primary) hypertension, Z00.00 - Encounter for general adult medical examination without abnormal findings Vitamin D 25-OH Total Today Z00.00 - Encounter for general adult medical examination without abnormal findings Complete Blood Count no Diff Today I10 - Essential (primary) hypertension, Z00.00 - Encounter for general adult medical examination without abnormal findings Patient Instructions: - Continue taking lisinopril as prescribed. - Maintain a low-carbohydrate diet and regular exercise routine. - Schedule follow-up with cardiology for calcium score and blood work. - Monitor for any recurrence of varicose veins or changes in vision. - Return for follow-up appointment in six months.
--- OUTSIDE RECORDS SUMMARY | 2025-02-12 18:10 | XMS_ITS | Clinical Summary ---
Author Organization [facility] Address [address] [place] [id number] Phone Care Team Providers Care Data Officer Name Role Phone Sagar Francisco MD Primary Care Provider [phone] Allergies No known active allergies Medications lisinopril [...] 2020 ZOSTER VACCINES (1 of 2) 2020 INFLUENZA VACCINE (#1) 2025 COVID-19 VACCINE (3 - 2024-2 6 season) 2025 10/30/2020, 10/01/2020 SMOKING STATUS SCREENING (On ce [...] topic Medical Devices Not on file Insurance [facility] Address: [facility] [address] [place] [address] Care Teams Data Officer Relationship Specialty Start Date End Date Sagar Francisco MD [address] [place] [address] [address] [place] [address] PCP - General Internal Medicine 12/16/19 Additional Source Comments The information contained in this document represents components of the legal health record. It is not the complete legal health record.[facility]
== END 2025-02-12 15:28 | disposition home or self-care (01) ==
LOC: HO.HMCHD 14:54
PROVIDERS: PCP Physician Assistant Medical; Visit Provider Physician Assistant Medical
DX: I10 Essential (primary) hypertension (principal); E78.00 Pure hypercholesterolemia, unspecified

== ENCOUNTER → 2025-02-12 14:53 | Outpatient (BNVA) | payer OTHER, SELFPAY | PROVIDERS: PCP Physician Assistant Medical; Visit Provider Physician Assistant Medical | DX: Z13.31 Encounter for screening for depression (principal); Z13.39 Encounter for screening examination for other mental health and behavioral disorders | CPT/HCPCS: 96127 ==

== ENCOUNTER → 2025-04-18 09:20 | Outpatient (REF) | payer OTHER, SELFPAY ==
--- NOTE | ~2025-04-18 | NM_ITS ---
EXERCISE MYOCARDIAL PERFUSION STUDY INDICATION: Heavy coronary calcification to evaluate for myocardial ischemia TECHNIQUE: The patient was brought in for an exercise perfusion study on 04/18/2025. Patient performed exercise as per Yasmany protocol and was injected 30 mCi of sestamibi once target heart rate was achieved. Images were obtained using the SPECT gamma camera interlaced with the gating device. Images were obtained in supine position. Resting perfusion study was performed on 04/19/2025. Patient was administered 30 mCi of sestamibi intravenously at rest. Images were then obtained in supine position. Images were processed with the software and compared side to side in short axis, horizontal long axis and vertical long axis views. Images obtained without without CT attenuation. Total DLP 73 mGy-cm. FINDINGS: Raw images were reviewed The stress perfusion study showed nonattenuated images show minimally reduced uptake in the basal inferior wall of the LV myocardium. Remainder of the LV myocardium is normally perfused. Attenuated corrected images show mildly reduced uptake in the apex of the LV myocardium. The gated study shows normal LV systolic function with calculated LVEF of 73%. LV cavity is normal in size. The gated study shows normal systolic wall thickening and contraction of segments. Resting study shows no change in perfusion pattern compared to stress perfusion study. Gating at rest reveals normal systolic wall motion with ejection fraction at 77%. The findings are consistent with no reversible defect suggestive ischemia. Normal myocardial perfusion. NM/NM cardiolite stress test IMPRESSION: 1. Myocardial perfusion imaging study shows normal myocardial perfusion. 2. Gated LVEF is 33%. 3. Transient ischemic dilatation not present. EKG revealed negative for ischemia. Electronically signed by: Renato Kaplan MD 04/19/2025 03:58 PM [facility]
--- NOTE | 2025-04-18 09:22 | CA_ITS ---
Acquisition Time: 2025-04-18 09:34:24 Total Exercise Time: 00:07:01 Test Indications: Palpitations Medications: LISINOPRIL Protocol: CESARIO Max HR: 155 BPM 93% of Pred: 166 BPM Max BP: 204/70 mmHG Max Work Load: 8.5 METS Exercise stress test with exercise 7 mins 1 sec of Cesario Protocol, achiecing 89% MPHR, without any reports of CP, with isolated PVCs, with hypertensive response to exercise - max BP 204/70. Without any EKG changes meeting criteria for ischemia. In recovery, pt continued to feel well. BP improved to baseline. Nuclear images pending. Test reviewed with Dr. Kaplan. Referred By: Renato Kaplan Electronically Signed By: Jeremie Vazquez
--- OUTSIDE RECORDS SUMMARY | 2025-04-18 10:15 | XMS_ITS | Clinical Summary ---
Author Organization [facility] Address [address] [place] [id number] Phone Care Team Providers Care Mines Safety Engineer Name Role Phone Sagar Francisco MD Primary Care Provider [phone] Allergies No known active allergies Medications lisinopril [...] - 2024-2 6 season) 2025 10/30/2020, 10/01/2020 RSV VACCINE (1 - 1-dose 75+ series) 2045 SMOKING STATUS SCREENING (On ce After 26 [...] topic Medical Devices Not on file Insurance [facility] Address: [facility] [address] [place] [address] Care Teams Mines Safety Engineer Relationship Specialty Start Date End Date Sagar Francisco MD [address] [place] [address] [address] [place] [address] PCP - General Internal Medicine 12/16/19 Additional Source Comments The information contained in this document represents components of the legal health record. It is not the complete legal health record.[facility]
[2025-04-18 12:25] LABS: Hematocrit 45.8 % (42.0-52.0); Hemoglobin 14.9 g/dl (14.0-18.0); Mean Corpuscular HGB Conc 32.5 g/dl (31.0-36.0); Mean Corpuscular Hemoglobin 30.9 pg (27.0-33.0); Mean Corpuscular Volume 95.0 fL (80.0-98.0); NRBC Abs Auto 0.000 X10*3/uL (0.0-0.012); NRBC Pct Auto 0.0 /100WBC (0.0-0.2); Platelet Count 254 X10*3/uL (160-400); Red Blood Count 4.82 X10*6/uL (4.60-5.80); White Blood Count 5.0 X10*3/uL (4.8-10.8)
[2025-04-18 13:06] LABS: Alanine Aminotransferase 46 U/L (0-40); Albumin Level 5.2 g/dL (3.5-5.0); Alkaline Phosphatase 55 U/L (39-117); Anion Gap 13 (12-20); Aspartate Amino Transferase 27 U/L (5-37); Blood Urea Nitrogen 25 mg/dL (9-16); Calcium 9.9 mg/dL (8.4-10.2); Carbon Dioxide 29 mmol/L (22-29); Chloride 105 mmol/L (96-108); Cholesterol 280 mg/dL (<200); Estimated Glomerular Filt Rate > 60; HDL Cholesterol 96 mg/dL (>40); Potassium 4.2 mmol/L (3.3-5.1); Sodium 143 mmol/L (135-145); Total Protein 8.1 g/dL (6.5-8.0); Triglycerides 58 mg/dL (<150)
== END ==
LOC: HO.CARD 09:20
PROVIDERS: PCP Physician Assistant Medical; Visit Provider Internal Medicine Cardiovascular Disease
DX: Z00.00 Encounter for general adult medical examination without abnormal findings (principal); I25.10 Atherosclerotic heart disease of native coronary artery without angina pectoris; I10 Essential (primary) hypertension; E78.5 Hyperlipidemia, unspecified; R07.9 Chest pain, unspecified
CPT/HCPCS: 36415; 78452; 80053; 80061; 82172; 82306; 83695; 84443; 85027; 86141; 93017; A9500

== ENCOUNTER → 2025-04-18 09:22 | Outpatient (BNV) | payer OTHER, SELFPAY | PROVIDERS: PCP Physician Assistant Medical | DX: I49.3 Ventricular premature depolarization (principal) | CPT/HCPCS: 78452; 93016; 93018 ==